=== PATIENT | male | born 1955 | race Caucasian/White ===

== ENCOUNTER 2017-08-24 15:04 | Outpatient (CLI) | payer MEDICARE ==
--- NOTE | 2017-08-24 15:32 | RAD ---
THREE VIEWS LUMBAR SPINE 08/24/17 INDICATION: Back pain. History of spina bifida. FINDINGS: there is grade II anterolisthesis of L5 on S1 that appears stable on both the flexion and lateral ext ension. Radiographs. There is multilevel disc degenerative disease of the lumbar spine. There is mult ilevel facet osteoarthritic change. Again seen are bilateral pars defects at L5. There are vascular c alcifications involving the abdominal aorta. IMPRESSION: 1. Grade II anterolisthesis of L5 on S1 likely related to pars defects. 2. No abnormal translational motion demonstrated. POS: [facility]
== END 2017-08-24 15:05 | disposition home or self-care (01) ==
LOC: TBSIIMAG 15:04
PROVIDERS: ATTEND Neurological Surgery
DX: M43.17 Spondylolisthesis, lumbosacral region (principal)
CPT/HCPCS: 72100

== ENCOUNTER 2017-10-02 12:34 | Outpatient (CLI) | payer MEDICARE ==
[2017-10-02 14:46] LABS: Mean Corpuscular HGB CONC 36.8 g/dL (32.0-36.0); Mean Corpuscular Hemoglobin 33.2 pg (27.0-31.0); Mean Corpuscular Volume 90.1 fL (78.0-98.0); Platelet Count 207 thou/uL (130-400); RBC Distribution Width 12.8 % (11.5-14.5); Red Blood Cell (RBC) Count 4.51 mill/uL (4.70-6.10); White Blood Cell (WBC) Count 6.9 thou/uL (4.8-10.8)
[2017-10-02 14:58] LABS: INR-International Normal Ratio 1.1; PTT 29.9 SEC (22.9-36.1); Prothrombin Time 14.2 SEC (12.0-14.7)
[2017-10-02 15:06] LABS: ALT (SGPT) 17 U/L (8-55); AST (SGOT) 18 U/L (5-34); Albumin 4.2 g/dL (3.5-5.0); Alkaline Phosphatase 91 U/L (40-150); Anion Gap 15 mmol/L (10-20); BUN (Urea Nitrogen) 32 mg/dL (8.4-25.7); Bilirubin, Direct 0.5 mg/dL (0.1-0.3); Bilirubin, Total 1.2 mg/dL (0.2-1.2); Calc. Creatinine Clearance 0 mL/min (70-130); Calcium 9.7 mg/dL (7.8-10.44); Carbon Dioxide 23 mmol/L (22-29); Chloride 105 mmol/L (98-107); Estimated GFR-MDRD 47; Glucose 201 mg/dL (70-105); Protein, Total 7.6 g/dL (6.0-8.3); Sodium 138 mmol/L (136-145)
--- NOTE | 2017-10-03 12:49 | EKG ---
Test Reason : Blood Pressure : / mmHG Vent. Rate : 087 BPM Atrial Rate : 087 BPM P-R Int : 176 ms QRS Dur : 080 ms QT Int : 386 ms P-R-T Axes : 016 -53 060 degrees QTc Int : 464 ms Normal sinus rhythm Left anterior fascicular block Cannot rule out Anterior infarct (cited on or before 23-APR-2015) Abnormal ECG Confirmed by YOSSI PHILLIP ([id number]) on 10/03/2017 12:49:15 PM Referred By: ADOLFO Confirmed By:YOSSI PHILLIP
== END 2017-10-02 12:35 | disposition home or self-care (01) ==
LOC: LABBT 12:34
PROVIDERS: ATTEND Neurological Surgery
DX: Z01.818 Encounter for other preprocedural examination (principal); M48.061 Spinal stenosis, lumbar region without neurogenic claudication
CPT/HCPCS: 80048; 80076; 85027; 85610; 85730; 93005; 93010

== ENCOUNTER 2017-10-09 05:35 | Inpatient (IN) | payer MEDICARE ==
[2017-10-02 12:54] VITALS: BMI 33.5
[2017-10-09] MEDS ORDERED: CEFAZOLIN/Water 2 GM/20 ML SYRINGE ONE (06:06)
[2017-10-09] MEDS ORDERED: Fentanyl 250 MCG/5 ML VIAL ONE (06:42)
[2017-10-09] MEDS ORDERED: Sodium Chloride 0.9% 10 ML ONE (06:46)
--- NOTE | 2017-10-09 08:46 | OP ---
DATE OF PROCEDURE: 10/09/2017 SURGEON: Faustino Loyd M.D. I&C TECH: Andrew Herr PA-C PROCEDURE: L5-S1 bilateral laminectomy, facetectomy and foraminotomies, posterolateral arthrodesis, pedicle screw instrumentation L5-S1, demineralized bone matrix, local morselized autograft. PROCEDURE IN DETAIL: The patient was brought to the operating room, intubated. He was rolled in the prone position on gel-filled chest rolls. Incision made exposing L5 and S1 bilaterally and our leve l was confirmed by x-ray. We performed bilateral laminectomy, facetectomy and foraminotomies of both L5s. The right L5 was much more compressed than the left L5. Both L5s were ultimately decompressed . We placed pedicle screws at L5 and S1 using lateral fluoroscopic guidance and the position was con firmed by x-ray. A loly was secured between the screws and both reduction and distraction was applied bilaterally. Rods were secured by nuts which were final tightened. The wound was then extensively irrigated, immaculate hemostasis was secured. A combination of demineralized bone matrix, local mors elized autograft was laid over the posterolateral surfaces of arthrodesis. Vancomycin powder was shoshana lied and the wound was closed in anatomic layers.
[2017-10-09] MEDS ORDERED: HYDROmorphone 0.5 MG/0.5 ML SYRINGE ONE (08:56)
[2017-10-09] MEDS ORDERED: Fentanyl 100 MCG/2 ML VIAL ONE (08:56)
[2017-10-09] MEDS ORDERED: Morphine 4 MG/ML VIAL ONE (11:18)
[2017-10-09] MEDS ORDERED: HYDROcodone/Acetaminophen 10/325 mg Tablet ONE ×2 (11:45→17:42)
[2017-10-09] MEDS ORDERED: Tamsulosin HCl 0.4 MG CAP ONE (13:06)
[2017-10-09] MEDS ORDERED: Ondansetron HCl/PF 4 MG/2 ML Vial ONE (15:05)
[2017-10-09] MEDS ORDERED: ePHEDrine/0.9% NaCl/PF SYRINGE 50 mg/10 ml ONE (15:05)
[2017-10-09] MEDS ORDERED: PHENYLEPHRINE-NS 100 MCG/ML 10 ML SYRINGE ONE (15:05)
[2017-10-09] MEDS ORDERED: Dexamethasone 20 MG/5 ML VIAL ONE (15:05)
[2017-10-09] MEDS ORDERED: Labetalol 100 MG/20 ML MDV ONE (15:05)
[2017-10-09] MEDS ORDERED: PROPOFOL 200 MG/20 ML VIAL ONE (15:05)
[2017-10-09] MEDS ORDERED: Lidocaine 1% PF 5 ML VIAL ONE (15:05)
[2017-10-09] MEDS ORDERED: Glycopyrrolate 0.2 MG/ML 5 ML SYRINGE ONE (15:05)
[2017-10-09] MEDS ORDERED: Morphine 4 MG/ML Carpuject SLOW IVP PRN (18:00)
[2017-10-09] MEDS ORDERED: Promethazine HCl 25 MG/ML VIAL IM PRN (18:00)
[2017-10-09] MEDS ORDERED: diphenhydrAMINE 25 MG CAP PO PRN (18:00)
[2017-10-09] MEDS ORDERED: Promethazine 25 MG TAB PO PRN (18:00)
[2017-10-09] MEDS ORDERED: traMADol HCl 50 MG TAB PO PRN ×2 (18:00)
[2017-10-09] MEDS ORDERED: tiZANidine HCl 4 MG TAB PO PRN (18:00)
[2017-10-09] MEDS ORDERED: Milk Of Magnesia 30 ML UDCUP PO PRN (18:00)
[2017-10-09] MEDS ORDERED: diphenhydrAMINE 50 MG/ML VIAL IVP PRN (18:00)
[2017-10-09] MEDS ORDERED: Mag-Al 1200 mg/1200 mg/30 ML UDCUP PO PRN (18:00)
[2017-10-09] MEDS ORDERED: Promethazine HCl 12.5 MG SUPP PR PRN (18:00)
[2017-10-09] MEDS ORDERED: Ondansetron HCl/PF 4 MG/2 ML Vial IVP PRN (18:05)
[2017-10-09] MEDS: Amitriptyline HCl 25 MG TAB PO SCH (22:05)
[2017-10-09] MEDS: tiZANidine HCl 4 MG TAB PO SCH (22:05)
[2017-10-09] MEDS: Gabapentin 300 MG CAP PO SCH (22:06)
[2017-10-09] MEDS: HYDROcodone/Acetaminophen 10/325 mg Tablet PO PRN (22:06)
[2017-10-09] MEDS: Insulin Glargine 10 UNITS in Pre-Filled Syringe 1 EACH SC SCH (22:08)
[2017-10-10] MEDS: Tamsulosin HCl 0.4 MG CAP PO SCH (06:13)
[2017-10-10] MEDS: Gabapentin 300 MG CAP PO SCH ×3 (08:13→21:13)
[2017-10-10] MEDS: Lisinopril/Hydrochlorothiazide 20 mg/12.5 mg Tablet PO SCH (08:14)
[2017-10-10] MEDS: metFORMIN 500 MG TAB PO SCH ×2 (08:14→19:39)
[2017-10-10] MEDS: HYDROcodone/Acetaminophen 10/325 mg Tablet PO PRN ×2 (08:15→12:54)
[2017-10-10] MEDS ORDERED: Atorvastatin Calcium 40 MG TAB PO SCH (09:00)
[2017-10-10] MEDS: Sodium Chloride 0.9% 1,000 ML IV SCH ×3 (12:53→21:15)
[2017-10-10] MEDS ORDERED: Insulin Regular 300 UNITS/3 ML VIAL SC PRN (17:54)
[2017-10-10] MEDS ORDERED: Dextrose 50% Abboject 50 ML SYRINGE SLOW IVP PRN (17:54)
[2017-10-10] MEDS ORDERED: Dextrose 5% in Water 1,000 ML IV PRN (17:54)
[2017-10-10] MEDS ORDERED: Sodium Chloride 0.9% 1,000 ML IV SCH (18:00)
--- NOTE | 2017-10-10 18:44 | RAD ---
PORTABLE AP CHEST X-RAY: 10/10/17 HISTORY: Shortness of breath and wheezing. COMPARISON: 10/30/12. FINDINGS: There is linear patchy parenchymal changes at the left lung base in the region of the lingula which m ay be related to either atelectasis or developing pneumonia. Right lung is clear. The cardiac silhoue tte is magnified by projection. The pulmonary vasculature is within normal limits. There is bilateral glenohumeral osteoarthropathy present. IMPRESSION: Linear and patchy density at the left lung base which may be related to atelectasis, but developing p neumonia is a possibility. Followup to resolution is recommended. POS: [facility]
[2017-10-10] MEDS: Amitriptyline HCl 25 MG TAB PO SCH (21:13)
[2017-10-10] MEDS: tiZANidine HCl 4 MG TAB PO SCH (21:13)
[2017-10-10] MEDS: Acetaminophen 500 MG TAB PO PRN (21:41)
[2017-10-10] MEDS: Insulin Glargine 10 UNITS in Pre-Filled Syringe 1 EACH SC SCH (21:42)
[2017-10-10 22:00] LABS: #Lymphocytes 0.7 thou/uL (1.20-3.40); #Monocytes 0.6 thou/uL (0.11-0.59); #Neutrophils 6.1 thou/uL (1.40-6.50); %Basophils 0.1 % (0.0-1.0); %Eosinophils 0.5 % (0.0-10.0); %Monocytes 7.6 % (0.0-10.0); %Neutrophils 81.9 % (42.0-75.0); Hemoglobin 10.7 g/dL (14.0-18.0); Mean Corpuscular HGB CONC 36.7 g/dL (32.0-36.0); Mean Corpuscular Hemoglobin 33.6 pg (27.0-31.0); Mean Corpuscular Volume 91.5 fL (78.0-98.0); Mean Platelet Volume 7.4 fL (7.4-10.4); PLT Morphology Comment Appears Decreased; Platelet Count 117 thou/uL (130-400); RBC Distribution Width 13.4 % (11.5-14.5); Red Blood Cell (RBC) Count 3.19 mill/uL (4.70-6.10); White Blood Cell (WBC) Count 7.4 thou/uL (4.8-10.8)
[2017-10-10 22:08] LABS: ALT (SGPT) 15 U/L (8-55); AST (SGOT) 48 U/L (5-34); Albumin 3.3 g/dL (3.5-5.0); Alkaline Phosphatase 59 U/L (40-150); Anion Gap 11 mmol/L (10-20); BUN (Urea Nitrogen) 31 mg/dL (8.4-25.7); Bilirubin, Total 2.4 mg/dL (0.2-1.2); Calc. Creatinine Clearance 64 mL/min (70-130); Calcium 7.9 mg/dL (7.8-10.44); Carbon Dioxide 22 mmol/L (22-29); Chloride 98 mmol/L (98-107); Estimated GFR-MDRD 43; Globulin 2.8 g/dL (2.4-3.5); Glucose 194 mg/dL (70-105); Magnesium 1.1 mg/dL (1.6-2.6); Potassium 5.3 mmol/L (3.5-5.1); Protein, Total 6.1 g/dL (6.0-8.3); Sodium 126 mmol/L (136-145)
[2017-10-10 22:15] LABS: Phosphorus 1.4 mg/dL (2.3-4.7)
[2017-10-11] MEDS: Acetaminophen 500 MG TAB PO PRN ×2 (05:59→22:12)
[2017-10-11] MEDS: Tamsulosin HCl 0.4 MG CAP PO SCH (05:59)
[2017-10-11] MEDS ORDERED: Magnesium Sulfate 2 GM in Sodium Chloride 0.9% 100 ML IVPB SCH (06:45)
[2017-10-11] MEDS ORDERED: Magnesium 2 GM/NS 0.9% 100 ML 2 GM in Premix Bag 1 BAG IVPB SCH (07:00)
[2017-10-11] MEDS ORDERED: Vancomycin HCl 1 GM in Premix Bag 1 BAG IVPB SCH (07:00)
[2017-10-11] MEDS: Insulin Regular 300 UNITS/3 ML VIAL SC PRN ×3 (07:15→17:45)
[2017-10-11] MEDS: Gabapentin 300 MG CAP PO SCH ×3 (07:46→22:13)
[2017-10-11 07:54] LABS: ALT (SGPT) 14 U/L (8-55); AST (SGOT) 42 U/L (5-34); Alkaline Phosphatase 53 U/L (40-150); Anion Gap 9 mmol/L (10-20); BUN (Urea Nitrogen) 30 mg/dL (8.4-25.7); Bilirubin, Total 1.9 mg/dL (0.2-1.2); Calc. Creatinine Clearance 67 mL/min (70-130); Calcium 7.6 mg/dL (7.8-10.44); Carbon Dioxide 22 mmol/L (22-29); Chloride 102 mmol/L (98-107); Estimated GFR-MDRD 46; Globulin 2.5 g/dL (2.4-3.5); Glucose 160 mg/dL (70-105); Lipase Less than 4 U/L (8-78); Potassium 4.6 mmol/L (3.5-5.1); Protein, Total 5.5 g/dL (6.0-8.3); Sodium 128 mmol/L (136-145)
[2017-10-11 08:11] LABS: Thyroid Stimulating Hormone 0.3455 uIU/mL (0.35-4.94)
[2017-10-11] MEDS: Piperacillin/Tazobactam 3.375 GM in Sodium Chloride 0.9% 100 ML IVPB SCH ×3 (08:35→23:07)
[2017-10-11 09:49] LABS: Osmolality, Urine 240 mOsm/kg (300-900)
[2017-10-11] MEDS: Vancomycin HCl 1.5 GM in Sodium Chloride 0.9% 250 ML 300 ML IVPB SCH (09:51)
[2017-10-11 10:00] LABS: Sodium, Urine 26 mmol/L (Not Available)
[2017-10-11] MEDS: Sodium Chloride 0.9% 1,000 ML IV SCH ×3 (11:57→17:46)
--- NOTE | 2017-10-11 13:37 | PDOC.PN ---
- Subjective Encounter Start Date: 10/11/17 Encounter Start Time: 11:30 Patient seen and examined for med mngt . No new complaints except for discomfort over the surgical site. Sitter at bedside to prevent falls. No overnight events - Objective MAR Reviewed: Yes Vital Signs & Weight: Vital Signs (12 hours) Temp Pulse Resp BP Pulse Ox 10/11/17 13:22 98.1 F 100 18 164/87 H 96 10/11/17 13:05 98.6 F 98 18 95 10/11/17 09:00 98.6 F 98 18 118/61 93 L 10/11/17 08:09 100.1 F H 101 H 18 10/11/17 05:57 100.1 F H 101 H 18 146/73 H 94 L Weight Weight 208 lb I&O: 10/10/17 10/11/17 10/12/17 06:59 06:59 06:59 Intake Total 2050 2817 Output Total 1555 1200 200 Balance 495 1617 -200 Result Diagrams: 10/10/17 21:41 10/11/17 07:24 Additional Labs: Accuchecks 10/11/17 10/11/17 10/10/17 11:48 06:34 20:49 POC Glucose 163 H 164 H 204 H 10/10/17 16:13 POC Glucose 183 H Laboratory Tests 10/10/17 10/11/17 21:41 07:21 Sodium 126 L Potassium 5.3 H Phosphorus 1.4 L Magnesium 1.1 L Total Bilirubin 2.4 H TSH 3rd Generation 0.3455 L Radiology Reviewed by me: Yes (CXR ? Aspiration pneumonia) EKG Reviewed by me: Yes (SR) Phys Exam - Physical Examination Constitutional: NAD HEENT: PERRLA Neck: no JVD Respiratory: no wheezing, no rhonchi Scat rales at bases, Symmetrical, No accessory muscle use Cardiovascular: RRR, no rub No heaves/pulsations Gastrointestinal: soft, non-tender, positive bowel sounds Musculoskeletal: no edema Neurological: moves all 4 limbs Psychiatric: normal affect, A&O x 3 Skin: no rash Dx/Plan - Plan incentive spirometry, DVT proph w/SCDs IMPRESSION: 1. RADHA on CKD 2 2. Electrolyte abn (Acute on chronicHyponatremia/Hypomagnesemia/Hypophosphatemia /Hyperkalemia) 3. Low grade fever with Abn CXR ? Pneumonia LLL ? Pneumococcal vs Aspiration 4. HTN 5. DM2 6. Abn LFTS - multifactorial 7. Chronic Hep C / Chronic low back pain / Obesity BMI 33 / Thrombocytopenia PLAN: IV NS @125 Replace Magnesium and Phosphorus Blood culture Empiric Atbx - Vanc/Zosyn Fall precautions Check serum and urine osm, urine sodium, TSH. AM labs Repeat BMP later today Hold Lisinopril/HCTZ Hold Metformin Start sliding scale Cont Lantus at current dose Avoid hepatotoxic meds Review of Systems - Review of Systems Respiratory: negative: Cough, Dry, Shortness of Breath, Hemoptysis, SOB with Excertion, Pleuritic Pain, Sputum, Wheezing Cardiovascular: negative: chest pain, palpitations, orthopnea, paroxysmal nocturnal dyspnea, edema, light headedness, other Gastrointestinal: negative: Nausea, Vomiting, Abdominal Pain, Diarrhea, Constipation, Melena, Hematochezia, Other - Medications/Allergies Allergies/Adverse Reactions: Allergies Allergy/AdvReac Type Severity Reaction Status Date / Time ibuprofen Allergy Intermediate ELYSSA Verified 10/02/17 13:02 DOSE, SHORTNESS OF BREATH, DIZZINESS Medications: Current Medications Acetaminophen (Tylenol) 1,000 mg PO QIDPRN PRN PRN Reason: Headache/Fever or Pain Last Admin: 10/11/17 05:59 Dose: 1,000 mg Hydrocodone Bitart/Acetaminophen ([place] 10/325) 1 tab PO Q4H PRN PRN Reason: PAIN (1-3) Last Admin: 10/10/17 12:54 Dose: 1 tab Hydrocodone Bitart/Acetaminophen ([place] 10/325) 2 tab PO Q4H PRN PRN Reason: PAIN (4-6) Last Admin: 10/09/17 22:06 Dose: 2 tab Al Hydroxide/Mg Hydroxide (Maalox) 30 ml PO Q4H PRN PRN Reason: Heartburn or Indigestion Last Admin: 10/09/17 22:08 Dose: 30 ml Dextrose/Water (Dextrose 50%) 25 gm SLOW IVP PRN PRN PRN Reason: Hypoglycemia Diphenhydramine HCl (Benadryl) 25 mg PO Q6H PRN PRN Reason: Itching Diphenhydramine HCl (Benadryl) 25 mg IVP Q6H PRN PRN Reason: Itching Gabapentin (Neurontin) 600 mg PO TID [facility] Last Admin: 10/11/17 07:46 Dose: 600 mg Glucagon (Glucagon) 1 mg IM PRN PRN PRN Reason: Hypoglycemia Insulin Glargine 10 units/ (Miscellaneous Medication) 0.1 mls @ 0 mls/hr SC QPM [facility] Last Admin: 10/10/17 21:42 Dose: 0.1 mls Dextrose/Water (D5w) 1,000 mls @ 0 mls/hr IV .Q0M PRN; As Directed PRN Reason: Hypoglycemia Sodium Chloride (Normal Saline 0.9%) 1,000 mls @ 125 mls/hr IV .Q8H [facility] Last Admin: 10/11/17 13:03 Dose: Not Given Piperacillin Sod/Tazobactam (Sod 3.375 gm/ Sodium Chloride) 100 mls @ 200 mls/ hr IVPB Q8H [facility] Last Admin: 10/11/17 08:35 Dose: 100 mls Vancomycin HCl 1.5 gm/ Sodium (Chloride) 300 mls @ 200 mls/hr IVPB Q24HR [facility] Last Admin: 10/11/17 09:51 Dose: 300 mls Insulin Human Regular (Humulin R) 0 units SC .MILD SLIDING SCALE PRN PRN Reason: Mild Correctional Scale Last Admin: 10/11/17 11:57 Dose: 2 units Insulin Human Regular (Humulin R) 0 units SC .BEDTIME SLIDING SC PRN PRN Reason: Bedtime Correctional Scale Last Admin: 10/10/17 21:42 Dose: 4 unit Magnesium Hydroxide (Milk Of Magnesium) 30 ml PO Q12H PRN PRN Reason: Constipation Miscellaneous Medication (Pharmacy To Dose) 1 each IVPB ASDIR [facility] Morphine Sulfate (Morphine) 2 mg SLOW IVP Q1H PRN PRN Reason: Moderate Breakthrough Pain Morphine Sulfate (Morphine) 4 mg SLOW IVP Q1H PRN PRN Reason: Severe Breakthrough Pain Ondansetron HCl (Zofran) 4 mg IVP Q8H PRN PRN Reason: Nausea/Vomiting Pantoprazole Sodium (Protonix) 40 mg PO DAILY [facility] Last Admin: 10/11/17 07:46 Dose: 40 mg Promethazine HCl (Phenergan) 12.5 mg IM Q4H PRN PRN Reason: Nausea/Vomiting Last Admin: 10/09/17 20:29 Dose: 12.5 mg Promethazine HCl (Phenergan) 12.5 mg PO Q4H PRN PRN Reason: Nausea/Vomiting Promethazine HCl (Phenergan Suppository) 12.5 mg [place] Q4H PRN PRN Reason: Nausea/Vomiting Sodium Chloride (Flush - Normal Saline) 10 ml IVF Q12HR [facility] Last Admin: 10/11/17 07:45 Dose: 10 ml Sodium Chloride (Flush - Normal Saline) 10 ml IVF PRN PRN PRN Reason: Saline Flush Tamsulosin HCl (Flomax) 0.4 mg PO 0600 [facility] Last Admin: 10/11/17 05:59 Dose: 0.4 mg Tizanidine HCl (Zanaflex) 4 mg PO Q6H PRN PRN Reason: MUSCLE SPASM Tizanidine HCl (Zanaflex) 4 mg PO HS [facility] Last Admin: 10/10/17 21:13 Dose: 4 mg Tramadol HCl (Ultram) 50 mg PO Q6H PRN PRN Reason: PAIN (1-3) Last Admin: 10/10/17 18:05 Dose: 50 mg Tramadol HCl (Ultram) 100 mg PO Q6H PRN PRN Reason: PAIN (4-6)
[2017-10-11] MEDS ORDERED: Amlodipine 5 MG TAB PO SCH (17:00)
[2017-10-11 18:43] LABS: Sodium 133 mmol/L (136-145)
--- NOTE | 2017-10-11 19:44 | MRI ---
NONCONTRAST MRI CERVICAL SPINE 10/11/17 HISTORY: Unsteady gait and balance issues. Patient is post laminotomy defect of lumbar spine two days ago. Sev ere pain from surgery. COMPARISON: None available. FINDINGS: there is mild volume loss seen involving the visualized portions of the occipital lobes and cerebellu m. Cervicomedullary junction has a normal MRI appearance. There are mild end plate degenerative changes seen involving the mid cervical spine. There is otherwi se normal signal intensity demonstrated in the bone marrow. C2-3 level: There is no significant disc bulge or disc herniation. There are mild facet degenerative changes present bilaterally. There is mild right sided neural foraminal narrowing. The left neural fo ramen is patent. Minimal right sided uncinate process hypertrophy. C3-4 level: There is a broad based disc osteophyte complex with facet degenerative changes. Findings result in mild to moderate narrowing of the central spinal canal. There appears to be severe left kenn ed neural foraminal narrowing with moderate right sided neural foraminal narrowing. Uncinate process hypertrophy is present at this level. C4-5 level: There is a broad based disc osteophyte complex. Findings result in generalized mild to mo derate narrowing of the central spinal canal. There does appear to be slight flattening of the anteri or aspect of the spinal cord, but normal signal intensity is present in the spinal cord. Uncinate pro cess hypertrophy is seen bilaterally at this level. There is severe left and mild to moderate right s ided neural foraminal narrowing. C5-6 level: There is loss of intervertebral disc height. There is a broad based disc osteophyte compl ex and facet degenerative changes. Findings result in moderate narrowing of the central spinal canal. There is moderate to severe and severe right sided neural foraminal narrowing. Uncinate process hype rtrophy is present in addition to the facet hypertrophic changes. C6-7 level: There is loss of the intervertebral disc height. There is a mild broad based disc osteoph yte complex which results in slight narrowing of the ventral subarachnoid space. Uncinate process hyp ertrophy is seen bilaterally. There is severe bilateral neural foraminal narrowing greater on the lef t. C7-T1 level: There is no disc bulge or disc herniation. Central spinal canal and neural foramina are patent. IMPRESSION: Multilevel degenerative changes in the cervical spine greatest at the C4-5, C5-6 and C6-7 levels with severe degrees of neural foraminal narrowing at these levels. POS: [facility]
[2017-10-11] MEDS: tiZANidine HCl 4 MG TAB PO SCH (22:12)
[2017-10-11] MEDS: Insulin Glargine 10 UNITS in Pre-Filled Syringe 1 EACH SC SCH (22:25)
[2017-10-12] MEDS: HYDROcodone/Acetaminophen 10/325 mg Tablet PO PRN ×4 (05:29→18:26)
[2017-10-12] MEDS: Tamsulosin HCl 0.4 MG CAP PO SCH (05:30)
[2017-10-12] MEDS: Insulin Regular 300 UNITS/3 ML VIAL SC PRN ×2 (05:34→11:29)
[2017-10-12] MEDS: Piperacillin/Tazobactam 3.375 GM in Sodium Chloride 0.9% 100 ML IVPB SCH ×2 (05:58→14:25)
[2017-10-12 06:54] LABS: ALT (SGPT) 16 U/L (8-55); AST (SGOT) 40 U/L (5-34); Alkaline Phosphatase 65 U/L (40-150); Anion Gap 12 mmol/L (10-20); BUN (Urea Nitrogen) 25 mg/dL (8.4-25.7); Bilirubin, Total 1.6 mg/dL (0.2-1.2); Calc. Creatinine Clearance 74 mL/min (70-130); Carbon Dioxide 21 mmol/L (22-29); Chloride 104 mmol/L (98-107); Estimated GFR-MDRD 51; Glucose 170 mg/dL (70-105); Magnesium 1.6 mg/dL (1.6-2.6); Phosphorus 2.2 mg/dL (2.3-4.7); Potassium 4.2 mmol/L (3.5-5.1); Sodium 133 mmol/L (136-145)
[2017-10-12 06:56] LABS: #Eosinphils 0.1 thou/uL (0.0-0.7); #Lymphocytes 1.2 thou/uL (1.20-3.40); #Monocytes 0.5 thou/uL (0.11-0.59); #Neutrophils 3.6 thou/uL (1.40-6.50); %Basophils 0.5 % (0.0-1.0); %Eosinophils 1.9 % (0.0-10.0); %Lymphocytes 22.8 % (21.0-51.0); %Monocytes 8.8 % (0.0-10.0); Hemoglobin 10.4 g/dL (14.0-18.0); Mean Corpuscular HGB CONC 35.8 g/dL (32.0-36.0); Mean Corpuscular Hemoglobin 33.3 pg (27.0-31.0); Mean Platelet Volume 7.1 fL (7.4-10.4); Platelet Count 121 thou/uL (130-400); RBC Distribution Width 13.6 % (11.5-14.5); Red Blood Cell (RBC) Count 3.12 mill/uL (4.70-6.10); White Blood Cell (WBC) Count 5.4 thou/uL (4.8-10.8)
[2017-10-12] MEDS ORDERED: Magnesium 2 GM/NS 0.9% 100 ML 2 GM in Premix Bag 1 BAG IVPB SCH (07:15)
[2017-10-12] MEDS ORDERED: Magnesium Sulfate 2 GM in Sodium Chloride 0.9% 100 ML IVPB SCH (07:15)
[2017-10-12] MEDS: Gabapentin 300 MG CAP PO SCH ×3 (08:26→20:45)
[2017-10-12] MEDS: Amlodipine 5 MG TAB PO SCH (08:27)
[2017-10-12] MEDS: Multivit, Therapeutic 1 TAB PO SCH (08:27)
[2017-10-12] MEDS: K-Phos Neutral 250 MG TAB PO SCH ×3 (09:09→17:29)
[2017-10-12] MEDS: Vancomycin HCl 1.5 GM in Sodium Chloride 0.9% 250 ML 300 ML IVPB SCH (09:09)
[2017-10-12] MEDS: Sodium Chloride 0.9% 1,000 ML IV SCH (12:41)
--- NOTE | 2017-10-12 15:05 | PDOC.PN ---
- Subjective Encounter Start Date: 10/12/17 Encounter Start Time: 10:30 Patient seen and examined for med mngt. No new complaints. No overnight events - Objective MAR Reviewed: Yes Vital Signs & Weight: Vital Signs (12 hours) Temp Pulse Resp BP BP Pulse Ox 10/12/17 11:13 98.4 F 91 14 128/71 96 10/12/17 08:27 90 143/82 H 10/12/17 08:20 98.6 F 90 18 93 L 10/12/17 07:28 98.6 F 89 18 143/82 H 93 L 10/12/17 04:00 97.8 F 88 16 141/71 H 93 L Weight Weight 208 lb I&O: 10/11/17 10/12/17 10/13/17 06:59 06:59 06:59 Intake Total 2817 2605 Output Total 1200 2700 Balance 1617 -95 Result Diagrams: 10/12/17 04:55 10/12/17 04:55 Additional Labs: Accuchecks 10/12/17 10/12/17 10/11/17 11:16 04:47 20:18 POC Glucose 222 H 169 H 186 H 10/11/17 15:58 POC Glucose 276 H Laboratory Tests 10/10/17 10/11/17 10/11/17 21:41 07:24 09:00 Sodium 126 L 128 L Potassium 5.3 H Phosphorus 1.4 L Magnesium 1.1 L Total Bilirubin 1.9 H AST 42 H Urine Osmolality 240 L Urine Sodium 26 10/11/17 10/12/17 18:20 04:55 Sodium 133 L Potassium Phosphorus 2.2 L Magnesium 1.6 Total Bilirubin 1.6 H AST 40 H Urine Osmolality Urine Sodium Phys Exam - Physical Examination Constitutional: NAD Neck: no JVD Respiratory: no wheezing, no rhonchi Scat bibasilar rales Cardiovascular: RRR, no rub Gastrointestinal: soft, non-tender, positive bowel sounds Musculoskeletal: no edema Dx/Plan - Plan DVT proph w/SCDs IMPRESSION: 1. RADHA on CKD 2 - improving 2. Electrolyte abn (Hyponatremia/Hypomagnesemia/Hypophosphatemia)improving 3. ?Aspiration pneumonitis 4. HTN 5. DM2 - on sliding scale 6 Abn LFTS - multifactorial - improving 7. Chronic Hep C / Chronic low back pain / Obesity BMI 33 PLAN: Change IV NS @50 Replace Magnesium and Phosphorus Await Blood culture Change IV Atbx to PO Augmentin Labs reviewed AM lab Lisinopril/HCTZ and Metformin on hold Amlodipine started yesterday due to elevated BP Cont Lantus at current dose Review of Systems - Review of Systems Respiratory: Cough, Dry. negative: Shortness of Breath, Hemoptysis, SOB with Excertion, Pleuritic Pain, Sputum, Wheezing Cardiovascular: negative: chest pain, palpitations, orthopnea, paroxysmal nocturnal dyspnea, edema, light headedness, other - Medications/Allergies Allergies/Adverse Reactions: Allergies Allergy/AdvReac Type Severity Reaction Status Date / Time ibuprofen Allergy Intermediate ELYSSA Verified 10/02/17 13:02 DOSE, SHORTNESS OF BREATH, DIZZINESS Medications: Current Medications Acetaminophen (Tylenol) 1,000 mg PO QIDPRN PRN PRN Reason: Headache/Fever or Pain Last Admin: 10/11/17 22:12 Dose: 1,000 mg Hydrocodone Bitart/Acetaminophen ([place] 10/325) 1 tab PO Q4H PRN PRN Reason: PAIN (1-3) Last Admin: 10/10/17 12:54 Dose: 1 tab Hydrocodone Bitart/Acetaminophen ([place] 10/325) 2 tab PO Q4H PRN PRN Reason: PAIN (4-6) Last Admin: 10/12/17 14:25 Dose: 2 tab Al Hydroxide/Mg Hydroxide (Maalox) 30 ml PO Q4H PRN PRN Reason: Heartburn or Indigestion Last Admin: 10/09/17 22:08 Dose: 30 ml Amlodipine Besylate (Norvasc) 5 mg PO DAILY [facility] Last Admin: 10/12/17 08:27 Dose: 5 mg Amoxicillin/Clavulanate Potassium (Augmentin) 875 mg PO Q12HR [facility] Dextrose/Water (Dextrose 50%) 25 gm SLOW IVP PRN PRN PRN Reason: Hypoglycemia Diphenhydramine HCl (Benadryl) 25 mg PO Q6H PRN PRN Reason: Itching Diphenhydramine HCl (Benadryl) 25 mg IVP Q6H PRN PRN Reason: Itching Gabapentin (Neurontin) 600 mg PO TID [facility] Last Admin: 10/12/17 14:25 Dose: 600 mg Glucagon (Glucagon) 1 mg IM PRN PRN PRN Reason: Hypoglycemia Hydralazine HCl (Apresoline) 10 mg SLOW IVP Q4H PRN PRN Reason: SBP Greater Than 180 Insulin Glargine 10 units/ (Miscellaneous Medication) 0.1 mls @ 0 mls/hr SC QPM [facility] Last Admin: 10/11/17 22:25 Dose: 0.1 mls Dextrose/Water (D5w) 1,000 mls @ 0 mls/hr IV .Q0M PRN; As Directed PRN Reason: Hypoglycemia Sodium Chloride (Normal Saline 0.9%) 1,000 mls @ 50 mls/hr IV .Q20H [facility] Last Admin: 10/12/17 12:41 Dose: 1,000 mls Insulin Human Regular (Humulin R) 0 units SC .MILD SLIDING SCALE PRN PRN Reason: Mild Correctional Scale Last Admin: 10/12/17 11:29 Dose: 3 units Insulin Human Regular (Humulin R) 0 units SC .BEDTIME SLIDING SC PRN PRN Reason: Bedtime Correctional Scale Last Admin: 10/10/17 21:42 Dose: 4 unit Magnesium Hydroxide (Milk Of Magnesium) 30 ml PO Q12H PRN PRN Reason: Constipation Miscellaneous Medication (Pharmacy To Dose) 1 each IVPB ASDIR [facility] Morphine Sulfate (Morphine) 2 mg SLOW IVP Q1H PRN PRN Reason: Moderate Breakthrough Pain Morphine Sulfate (Morphine) 4 mg SLOW IVP Q1H PRN PRN Reason: Severe Breakthrough Pain Multivitamins (Theragran) 1 tab PO DAILY [facility] Last Admin: 10/12/17 08:27 Dose: 1 tab Ondansetron HCl (Zofran) 4 mg IVP Q8H PRN PRN Reason: Nausea/Vomiting Pantoprazole Sodium (Protonix) 40 mg PO DAILY [facility] Last Admin: 10/12/17 08:27 Dose: 40 mg Phosphorus (Kphos Neutral) 250 mg PO TID[facility] Last Admin: 10/12/17 11:29 Dose: 250 mg Promethazine HCl (Phenergan) 12.5 mg IM Q4H PRN PRN Reason: Nausea/Vomiting Last Admin: 10/09/17 20:29 Dose: 12.5 mg Promethazine HCl (Phenergan) 12.5 mg PO Q4H PRN PRN Reason: Nausea/Vomiting Promethazine HCl (Phenergan Suppository) 12.5 mg CO Q4H PRN PRN Reason: Nausea/Vomiting Sodium Chloride (Flush - Normal Saline) 10 ml IVF Q12HR [facility] Last Admin: 10/12/17 08:28 Dose: Not Given Sodium Chloride (Flush - Normal Saline) 10 ml IVF PRN PRN PRN Reason: Saline Flush Tamsulosin HCl (Flomax) 0.4 mg PO 0600 [facility] Last Admin: 10/12/17 05:30 Dose: 0.4 mg Tizanidine HCl (Zanaflex) 4 mg PO Q6H PRN PRN Reason: MUSCLE SPASM Tizanidine HCl (Zanaflex) 4 mg PO HS [facility] Last Admin: 10/11/17 22:12 Dose: 4 mg Tramadol HCl (Ultram) 50 mg PO Q6H PRN PRN Reason: PAIN (1-3) Last Admin: 10/10/17 18:05 Dose: 50 mg Tramadol HCl (Ultram) 100 mg PO Q6H PRN PRN Reason: PAIN (4-6)
[2017-10-12] MEDS: Amoxicillin/Potassium Clav 875 MG TAB PO SCH (20:45)
[2017-10-12] MEDS: guaiFENesin ER 600 MG TAB PO SCH (20:46)
[2017-10-12] MEDS: tiZANidine HCl 4 MG TAB PO SCH (20:46)
[2017-10-12] MEDS: Senokot S 8.6-50 MG TAB PO SCH (20:48)
[2017-10-12] MEDS: Insulin Glargine 10 UNITS in Pre-Filled Syringe 1 EACH SC SCH (21:46)
[2017-10-13] MEDS: hydrALAZINE 20 MG/ML VIAL SLOW IVP PRN (00:06)
[2017-10-13] MEDS: HYDROcodone/Acetaminophen 10/325 mg Tablet PO PRN ×4 (04:12→21:08)
[2017-10-13] MEDS: Tamsulosin HCl 0.4 MG CAP PO SCH (04:14)
[2017-10-13 05:51] LABS: #Eosinphils 0.1 thou/uL (0.0-0.7); #Lymphocytes 0.9 thou/uL (1.20-3.40); #Monocytes 0.6 thou/uL (0.11-0.59); #Neutrophils 3.8 thou/uL (1.40-6.50); %Basophils 0.2 % (0.0-1.0); %Eosinophils 1.8 % (0.0-10.0); %Lymphocytes 16.7 % (21.0-51.0); %Monocytes 11.2 % (0.0-10.0); %Neutrophils 70.2 % (42.0-75.0); Hemoglobin 10.3 g/dL (14.0-18.0); Mean Corpuscular HGB CONC 34.4 g/dL (32.0-36.0); Mean Corpuscular Hemoglobin 32.7 pg (27.0-31.0); Mean Corpuscular Volume 94.9 fL (78.0-98.0); Mean Platelet Volume 7.1 fL (7.4-10.4); Platelet Count 147 thou/uL (130-400); RBC Distribution Width 13.8 % (11.5-14.5); Red Blood Cell (RBC) Count 3.16 mill/uL (4.70-6.10); White Blood Cell (WBC) Count 5.4 thou/uL (4.8-10.8)
[2017-10-13 06:00] LABS: ALT (SGPT) 17 U/L (8-55); AST (SGOT) 33 U/L (5-34); Albumin 3.3 g/dL (3.5-5.0); Alkaline Phosphatase 76 U/L (40-150); Anion Gap 11 mmol/L (10-20); BUN (Urea Nitrogen) 19 mg/dL (8.4-25.7); Bilirubin, Total 2.4 mg/dL (0.2-1.2); Calc. Creatinine Clearance 85 mL/min (70-130); Calcium 7.7 mg/dL (7.8-10.44); Carbon Dioxide 23 mmol/L (22-29); Chloride 101 mmol/L (98-107); Estimated GFR-MDRD 60; Globulin 3.2 g/dL (2.4-3.5); Glucose 209 mg/dL (70-105); Magnesium 1.6 mg/dL (1.6-2.6); Phosphorus 2.5 mg/dL (2.3-4.7); Potassium 4.4 mmol/L (3.5-5.1); Protein, Total 6.5 g/dL (6.0-8.3); Sodium 131 mmol/L (136-145)
[2017-10-13] MEDS: Insulin Regular 300 UNITS/3 ML VIAL SC PRN ×2 (06:40→17:21)
--- NOTE | 2017-10-13 07:22 | PRG ---
DATE OF SERVICE: 10/13/2017 The patient is a 62-year-old male postop day #4 status post L5-S1 decompression and fusion for lumbar stenosis and spondylolisthesis. Following this procedure, the patient continued to have l ower extremity weakness and frequent falls with addition of some weakness in the upper extremities as well. This was evaluated further with a cervical MRI which is notable for significant central canal stenosis from C4-C6. He was seen and examined by Dr. Loyd and we have plans for a C4-C6 ACDF on 10/16/2017. He otherwise is doing well with regards to pain control, he is tolerating a regular t, and he is voiding appropriately. I have discussed the importance of wearing SCDs in the bed at a ll times and patient reports that he will be compliant. He has had some intermittent shortness of br eath and chest congestion which is currently being monitored and managed by the Hospitalist Service. We appreciate their input. Please reach out to Neurosurgery for additional questions or concerns.
[2017-10-13] MEDS: guaiFENesin ER 600 MG TAB PO SCH ×2 (08:42→21:04)
[2017-10-13] MEDS: Amoxicillin/Potassium Clav 875 MG TAB PO SCH ×2 (08:42→21:04)
[2017-10-13] MEDS: K-Phos Neutral 250 MG TAB PO SCH ×3 (08:42→17:20)
[2017-10-13] MEDS: Gabapentin 300 MG CAP PO SCH ×3 (08:42→21:03)
[2017-10-13] MEDS: Multivit, Therapeutic 1 TAB PO SCH (08:42)
[2017-10-13] MEDS: Polyethylene Glycol 3350 17 GM Packet PO SCH (08:43)
[2017-10-13] MEDS: Amlodipine 5 MG TAB PO SCH (08:43)
[2017-10-13] MEDS: Senokot S 8.6-50 MG TAB PO SCH ×2 (08:43→21:04)
[2017-10-13] MEDS: Sodium Chloride 0.9% 1,000 ML IV SCH (08:45)
--- NOTE | 2017-10-13 12:41 | PQF ---
CLINICAL DOCUMENTATION IMPROVEMENT CLARIFICATION FORM: ICD-10 Updated PLEASE DO AN ADDENDUM TO THE PROGRESS NOTE WITH ANY DOCUMENTATION UPDATES OR ADDITIONS AND CARRY THROUGH TO DC SUMMARY. THANK YOU. DATE: 10/13/17 ATTN: DR. TORRES Please exercise your independent, professional judgment in responding to the clarification form. Clinical indicators are provided on the bottom of this form for your review Please check appropriate box(s): [ ] Aspiration Pneumonia [ ] Simple Pneumonia (community acquired - nosocomial) [ ] Atelectasis [ ] Other diagnosis [ ] Unable to determine In addition, please specify: Present on Admission (POA): [ ] Yes [ ] No [ ] Unable to determine For continuity of documentation, please document condition throughout progress notes and discharge summary. Thank You. CLINICAL INDICATORS - SIGNS / SYMPTOMS / LABS 10/10 CXR: "LINEAR AND PATCHY DENSITY AT THE LEFT LUNG BASE WHICH MAY BE RELATED TO ATELECTASIS, BUT DEVELOPING PNEUMONIA IS A POSSIBILITY." NURSES NOTE 10/10: "AUDIBLE WHEEZING" PROGRESS NOTE 10/12: " ? ASPIRATION PNEUMONITIS" RISKS: SURGERY THIS ADMISSION TREATMENT: AUGMENTIN IV ZOSYN (10/11-10/12) IV VANCOMYCIN (10/11-10/12) (This form is maintained as a part of the permanent medical record) 2014 [employer], [employer]. All Rights Reserved [email or web address] Office: [phone] [email or web address]
[2017-10-13] MEDS: Insulin Glargine 10 UNITS in Pre-Filled Syringe 1 EACH SC SCH (21:01)
[2017-10-13] MEDS: tiZANidine HCl 4 MG TAB PO SCH (21:04)
--- NOTE | 2017-10-13 21:56 | PDOC.PN ---
- Subjective Encounter Start Date: 10/13/17 Encounter Start Time: 15:00 Patient seen and examined for med mgnt. No new complaints. No overnight events - Objective MAR Reviewed: Yes Vital Signs & Weight: Vital Signs (12 hours) Temp Pulse Resp BP Pulse Ox 10/13/17 21:11 98.7 F 98 18 95 10/13/17 20:00 98.7 F 98 18 175/91 H 95 10/13/17 15:26 168/74 H 10/13/17 15:07 98.2 F 100 16 175/96 H 94 L 10/13/17 11:03 97.4 F L 94 16 154/88 H 94 L Weight Weight 208 lb I&O: 10/12/17 10/13/17 10/14/17 06:59 06:59 06:59 Intake Total 2605 2800 1100 Output Total 2700 1800 1200 Balance -95 1000 -100 Result Diagrams: 10/13/17 05:05 10/13/17 05:05 Additional Labs: Accuchecks 10/13/17 10/13/17 10/13/17 21:03 15:46 11:08 POC Glucose 185 H 232 H 133 H 10/13/17 05:46 POC Glucose 209 H Phys Exam - Physical Examination Constitutional: NAD Respiratory: no wheezing, no rhonchi Scat rales at bases Cardiovascular: RRR, no rub Gastrointestinal: soft, non-tender, positive bowel sounds Musculoskeletal: no edema Neurological: moves all 4 limbs Dx/Plan - Plan DVT proph w/SCDs IMPRESSION: 1. RADHA on CKD 2 - improving 2. Electrolyte abn (Hyponatremia/Hypomagnesemia/Hypophosphatemia) - improving 3. Aspiration pneumonia - Not present on admission 4. HTN 5. DM2 - on sliding scale/Lantus 6 Abn LFTS - multifactorial - improving 7. Chronic Hep C / Chronic low back pain / Obesity BMI 33 PLAN: Cont Augmentin Cont IV NS @50 Blood culture neg Lisinopril/HCTZ and Metformin on hold Cont Amlodipine Cont Lantus with sliding scale Review of Systems - Review of Systems Respiratory: negative: Cough, Dry, Shortness of Breath, Hemoptysis, SOB with Excertion, Pleuritic Pain, Sputum, Wheezing Cardiovascular: negative: chest pain, palpitations, orthopnea, paroxysmal nocturnal dyspnea, edema, light headedness, other - Medications/Allergies Allergies/Adverse Reactions: Allergies Allergy/AdvReac Type Severity Reaction Status Date / Time ibuprofen Allergy Intermediate ELYSSA Verified 10/02/17 13:02 DOSE, SHORTNESS OF BREATH, DIZZINESS Medications: Current Medications Acetaminophen (Tylenol) 1,000 mg PO QIDPRN PRN PRN Reason: Headache/Fever or Pain Last Admin: 10/11/17 22:12 Dose: 1,000 mg Hydrocodone Bitart/Acetaminophen ([place] 10/325) 1 tab PO Q4H PRN PRN Reason: PAIN (1-3) Last Admin: 10/10/17 12:54 Dose: 1 tab Hydrocodone Bitart/Acetaminophen ([place] 10/325) 2 tab PO Q4H PRN PRN Reason: PAIN (4-6) Last Admin: 10/13/17 21:08 Dose: 2 tab Al Hydroxide/Mg Hydroxide (Maalox) 30 ml PO Q4H PRN PRN Reason: Heartburn or Indigestion Last Admin: 10/09/17 22:08 Dose: 30 ml Amlodipine Besylate (Norvasc) 5 mg PO DAILY [facility] Last Admin: 10/13/17 08:43 Dose: 5 mg Amoxicillin/Clavulanate Potassium (Augmentin) 875 mg PO Q12HR [facility] Last Admin: 10/13/17 21:04 Dose: 875 mg Dextrose/Water (Dextrose 50%) 25 gm SLOW IVP PRN PRN PRN Reason: Hypoglycemia Diphenhydramine HCl (Benadryl) 25 mg PO Q6H PRN PRN Reason: Itching Diphenhydramine HCl (Benadryl) 25 mg IVP Q6H PRN PRN Reason: Itching Gabapentin (Neurontin) 600 mg PO TID [facility] Last Admin: 10/13/17 21:03 Dose: 600 mg Glucagon (Glucagon) 1 mg IM PRN PRN PRN Reason: Hypoglycemia Guaifenesin (Mucinex) 600 mg PO Q12HR [facility] Last Admin: 10/13/17 21:04 Dose: 600 mg Hydralazine HCl (Apresoline) 10 mg SLOW IVP Q4H PRN PRN Reason: SBP Greater Than 180 Last Admin: 10/13/17 00:06 Dose: 10 mg Insulin Glargine 10 units/ (Miscellaneous Medication) 0.1 mls @ 0 mls/hr SC QPM [facility] Last Admin: 10/13/17 21:01 Dose: 0.1 mls Dextrose/Water (D5w) 1,000 mls @ 0 mls/hr IV .Q0M PRN; As Directed PRN Reason: Hypoglycemia Sodium Chloride (Normal Saline 0.9%) 1,000 mls @ 50 mls/hr IV .Q20H [facility] Last Admin: 10/13/17 08:45 Dose: 1,000 mls Insulin Human Regular (Humulin R) 0 units SC .MILD SLIDING SCALE PRN PRN Reason: Mild Correctional Scale Last Admin: 10/13/17 17:21 Dose: 3 units Insulin Human Regular (Humulin R) 0 units SC .BEDTIME SLIDING SC PRN PRN Reason: Bedtime Correctional Scale Last Admin: 10/10/17 21:42 Dose: 4 unit Magnesium Hydroxide (Milk Of Magnesium) 30 ml PO Q12H PRN PRN Reason: Constipation Miscellaneous Medication (Pharmacy To Dose) 1 each IVPB ASDIR [facility] Morphine Sulfate (Morphine) 2 mg SLOW IVP Q1H PRN PRN Reason: Moderate Breakthrough Pain Morphine Sulfate (Morphine) 4 mg SLOW IVP Q1H PRN PRN Reason: Severe Breakthrough Pain Multivitamins (Theragran) 1 tab PO DAILY [facility] Last Admin: 10/13/17 08:42 Dose: 1 tab Ondansetron HCl (Zofran) 4 mg IVP Q8H PRN PRN Reason: Nausea/Vomiting Pantoprazole Sodium (Protonix) 40 mg PO DAILY [facility] Last Admin: 10/13/17 08:42 Dose: 40 mg Phosphorus (Kphos Neutral) 250 mg PO TID-[facility] [place] Last Admin: 10/13/17 17:20 Dose: 250 mg Polyethylene Glycol (Miralax) 17 gm PO DAILY [facility] Last Admin: 10/13/17 08:43 Dose: Not Given Promethazine HCl (Phenergan) 12.5 mg IM Q4H PRN PRN Reason: Nausea/Vomiting Last Admin: 10/09/17 20:29 Dose: 12.5 mg Promethazine HCl (Phenergan) 12.5 mg PO Q4H PRN PRN Reason: Nausea/Vomiting Promethazine HCl (Phenergan Suppository) 12.5 mg NM Q4H PRN PRN Reason: Nausea/Vomiting Senna/Docusate Sodium (Senokot S) 1 tab PO BID [facility] Last Admin: 10/13/17 21:04 Dose: 1 tab Sodium Chloride (Flush - Normal Saline) 10 ml IVF Q12HR [facility] Last Admin: 10/13/17 21:05 Dose: 10 ml Sodium Chloride (Flush - Normal Saline) 10 ml IVF PRN PRN PRN Reason: Saline Flush Tamsulosin HCl (Flomax) 0.4 mg PO 0600 [facility] Last Admin: 10/13/17 04:14 Dose: 0.4 mg Tizanidine HCl (Zanaflex) 4 mg PO Q6H PRN PRN Reason: MUSCLE SPASM Tizanidine HCl (Zanaflex) 4 mg PO HS [facility] Last Admin: 10/13/17 21:04 Dose: 4 mg Tramadol HCl (Ultram) 50 mg PO Q6H PRN PRN Reason: PAIN (1-3) Last Admin: 10/10/17 18:05 Dose: 50 mg Tramadol HCl (Ultram) 100 mg PO Q6H PRN PRN Reason: PAIN (4-6)
[2017-10-14] MEDS: Sodium Chloride 0.9% 1,000 ML IV SCH (05:36)
[2017-10-14] MEDS: Tamsulosin HCl 0.4 MG CAP PO SCH (05:36)
[2017-10-14] MEDS: HYDROcodone/Acetaminophen 10/325 mg Tablet PO PRN ×2 (06:47→11:14)
[2017-10-14] MEDS: Senokot S 8.6-50 MG TAB PO SCH ×2 (06:47→21:27)
[2017-10-14] MEDS: Gabapentin 300 MG CAP PO SCH ×3 (08:44→21:25)
[2017-10-14] MEDS: K-Phos Neutral 250 MG TAB PO SCH ×3 (08:45→16:58)
[2017-10-14] MEDS: Amlodipine 5 MG TAB PO SCH ×2 (08:45→21:25)
[2017-10-14] MEDS: Amoxicillin/Potassium Clav 875 MG TAB PO SCH ×2 (08:45→21:25)
[2017-10-14] MEDS: guaiFENesin ER 600 MG TAB PO SCH ×2 (08:45→21:25)
[2017-10-14] MEDS: Multivit, Therapeutic 1 TAB PO SCH (08:45)
[2017-10-14] MEDS: Polyethylene Glycol 3350 17 GM Packet PO SCH (08:50)
[2017-10-14] MEDS ORDERED: Lisinopril 20 MG TAB PO SCH (10:15)
--- NOTE | 2017-10-14 11:33 | ULT ---
ULTRASOUND WITH DOPPLER DUPLEX VENOUS LOWER EXTREMITY BILATERAL: CPT: 78527 ICD-10-PCS: B54D HISTORY: Bilateral lower extremity edema. TECHNIQUE: Color flow Doppler, spectral waveform analysis of pulsed Doppler, and moore-scale imaging with susan charlotte and augmentation, were used to evaluate the bilateral common femoral, femoral, popliteal, soil conservation technician ior tibial, and superficial femoral, veins; and the proximal portions of the profunda femoral and gre ater saphenous, veins. FINDINGS: There is appropriate compressibility and flow within the imaged deep vein system of each lower extrem ity. IMPRESSION: No deep vein thrombosis. POS: [facility]
[2017-10-14] MEDS ORDERED: Furosemide 20 MG/2 ML VIAL SLOW IVP SCH (16:15)
[2017-10-14] MEDS: Insulin Regular 300 UNITS/3 ML VIAL SC PRN (17:54)
[2017-10-14] MEDS: Insulin Glargine 10 UNITS in Pre-Filled Syringe 1 EACH SC SCH (21:24)
[2017-10-14] MEDS: tiZANidine HCl 4 MG TAB PO SCH (21:26)
--- NOTE | 2017-10-14 23:42 | PDOC.PN ---
- Subjective Encounter Start Date: 10/14/17 Encounter Start Time: 17:00 Patient seen and examined for med mngt. No new complaints. No overnight events - Objective MAR Reviewed: Yes Vital Signs & Weight: Vital Signs (12 hours) Temp Pulse Resp BP BP Pulse Ox 10/14/17 21:25 94 155/81 H 10/14/17 20:00 97.9 F 94 18 94 L 10/14/17 15:37 98.4 F 97 20 167/95 H 96 Weight Weight 208 lb I&O: 10/13/17 10/14/17 10/15/17 06:59 06:59 06:59 Intake Total 2800 1700 1150 Output Total 1800 2200 Balance 1000 -500 1150 Result Diagrams: 10/15/17 05:17 10/15/17 05:17 Additional Labs: Accuchecks 10/14/17 10/14/17 10/14/17 21:25 15:40 11:09 POC Glucose 173 H 158 H 157 H 10/14/17 05:43 POC Glucose 121 H Phys Exam - Physical Examination Constitutional: NAD Respiratory: no wheezing, no rhonchi Cardiovascular: RRR, no rub Gastrointestinal: soft, non-tender, positive bowel sounds Musculoskeletal: edema present (1 +) Dx/Plan - Plan DVT proph w/SCDs IMPRESSION: 1. RADHA on CKD 2 - improving 2. Electrolyte abn (Hyponatremia/Hypomagnesemia/Hypophosphatemia) - improving 3. Aspiration pneumonia - Not present on admission - on Augmentin 4. HTN 5. DM2 - on sliding scale/Lantus 6 Abn LFTS - multifactorial - improving 7. Chronic Hep C / Chronic low back pain / Obesity BMI 33 PLAN: DC IVF Cont Augmentin Resume Lisinopril/HCTZ in AM 1 dose of 20 mg IV Lasix Cont Amlodipine Cont Lantus with sliding scale Cont other PRN HTN meds Review of Systems - Review of Systems Respiratory: negative: Cough, Dry, Shortness of Breath, Hemoptysis, SOB with Excertion, Pleuritic Pain, Sputum, Wheezing Cardiovascular: negative: chest pain, palpitations, orthopnea, paroxysmal nocturnal dyspnea, edema, light headedness, other - Medications/Allergies Allergies/Adverse Reactions: Allergies Allergy/AdvReac Type Severity Reaction Status Date / Time ibuprofen Allergy Intermediate ELYSSA Verified 10/02/17 13:02 DOSE, SHORTNESS OF BREATH, DIZZINESS Medications: Current Medications Hydrocodone Bitart/Acetaminophen ([place] 10/325) 1 tab PO Q4H PRN PRN Reason: PAIN (1-3) Last Admin: 10/14/17 06:47 Dose: 1 tab Hydrocodone Bitart/Acetaminophen ([place] 10/325) 2 tab PO Q4H PRN PRN Reason: PAIN (4-6) Last Admin: 10/14/17 11:14 Dose: 2 tab Al Hydroxide/Mg Hydroxide (Maalox) 30 ml PO Q4H PRN PRN Reason: Heartburn or Indigestion Last Admin: 10/09/17 22:08 Dose: 30 ml Amlodipine Besylate (Norvasc) 5 mg PO BID [facility] Last Admin: 10/14/17 21:25 Dose: 5 mg Amoxicillin/Clavulanate Potassium (Augmentin) 875 mg PO Q12HR [facility] Last Admin: 10/14/17 21:25 Dose: 875 mg Dextrose/Water (Dextrose 50%) 25 gm SLOW IVP PRN PRN PRN Reason: Hypoglycemia Diphenhydramine HCl (Benadryl) 25 mg PO Q6H PRN PRN Reason: Itching Diphenhydramine HCl (Benadryl) 25 mg IVP Q6H PRN PRN Reason: Itching Gabapentin (Neurontin) 600 mg PO TID [facility] Last Admin: 10/14/17 21:25 Dose: 600 mg Glucagon (Glucagon) 1 mg IM PRN PRN PRN Reason: Hypoglycemia Guaifenesin (Mucinex) 600 mg PO Q12HR [facility] Last Admin: 10/14/17 21:25 Dose: 600 mg Lisinopril/HCTZ (Prinizide 20-12.5) 1 tab PO DAILY [facility] Hydralazine HCl (Apresoline) 10 mg SLOW IVP Q4H PRN PRN Reason: SBP Greater Than 180 Last Admin: 10/13/17 00:06 Dose: 10 mg Insulin Glargine 10 units/ (Miscellaneous Medication) 0.1 mls @ 0 mls/hr SC QPM [facility] Last Admin: 10/14/17 21:24 Dose: 0.1 mls Dextrose/Water (D5w) 1,000 mls @ 0 mls/hr IV .Q0M PRN; As Directed PRN Reason: Hypoglycemia Insulin Human Regular (Humulin R) 0 units SC .MILD SLIDING SCALE PRN PRN Reason: Mild Correctional Scale Last Admin: 10/14/17 17:54 Dose: 2 units Insulin Human Regular (Humulin R) 0 units SC .BEDTIME SLIDING SC PRN PRN Reason: Bedtime Correctional Scale Last Admin: 10/10/17 21:42 Dose: 4 unit Magnesium Hydroxide (Milk Of Magnesium) 30 ml PO Q12H PRN PRN Reason: Constipation Miscellaneous Medication (Pharmacy To Dose) 1 each IVPB ASDIR [facility] Morphine Sulfate (Morphine) 2 mg SLOW IVP Q1H PRN PRN Reason: Moderate Breakthrough Pain Morphine Sulfate (Morphine) 4 mg SLOW IVP Q1H PRN PRN Reason: Severe Breakthrough Pain Multivitamins (Theragran) 1 tab PO DAILY [facility] Last Admin: 10/14/17 08:45 Dose: 1 tab Ondansetron HCl (Zofran) 4 mg IVP Q8H PRN PRN Reason: Nausea/Vomiting Pantoprazole Sodium (Protonix) 40 mg PO DAILY [facility] Last Admin: 10/14/17 08:45 Dose: 40 mg Phosphorus (Kphos Neutral) 250 mg PO TID-[facility] Last Admin: 10/14/17 16:58 Dose: 250 mg Polyethylene Glycol (Miralax) 17 gm PO DAILY [facility] Last Admin: 10/14/17 08:50 Dose: Not Given Promethazine HCl (Phenergan) 12.5 mg IM Q4H PRN PRN Reason: Nausea/Vomiting Last Admin: 10/09/17 20:29 Dose: 12.5 mg Promethazine HCl (Phenergan) 12.5 mg PO Q4H PRN PRN Reason: Nausea/Vomiting Promethazine HCl (Phenergan Suppository) 12.5 mg HI Q4H PRN PRN Reason: Nausea/Vomiting Senna/Docusate Sodium (Senokot S) 1 tab PO BID [facility] Last Admin: 10/14/17 21:27 Dose: Not Given Sodium Chloride (Flush - Normal Saline) 10 ml IVF Q12HR [facility] Last Admin: 10/14/17 21:26 Dose: 10 ml Sodium Chloride (Flush - Normal Saline) 10 ml IVF PRN PRN PRN Reason: Saline Flush Tamsulosin HCl (Flomax) 0.4 mg PO 0600 [facility] Last Admin: 10/14/17 05:36 Dose: 0.4 mg Tizanidine HCl (Zanaflex) 4 mg PO Q6H PRN PRN Reason: MUSCLE SPASM Tizanidine HCl (Zanaflex) 4 mg PO HS [facility] Last Admin: 10/14/17 21:26 Dose: 4 mg Tramadol HCl (Ultram) 50 mg PO Q6H PRN PRN Reason: PAIN (1-3) Last Admin: 10/10/17 18:05 Dose: 50 mg Tramadol HCl (Ultram) 100 mg PO Q6H PRN PRN Reason: PAIN (4-6)
[2017-10-15 05:42] LABS: #Eosinphils 0.1 thou/uL (0.0-0.7); #Lymphocytes 0.6 thou/uL (1.20-3.40); #Monocytes 0.6 thou/uL (0.11-0.59); #Neutrophils 3.8 thou/uL (1.40-6.50); %Basophils 0.2 % (0.0-1.0); %Eosinophils 1.7 % (0.0-10.0); %Lymphocytes 12.1 % (21.0-51.0); %Monocytes 10.9 % (0.0-10.0); %Neutrophils 75.1 % (42.0-75.0); Hemoglobin 9.4 g/dL (14.0-18.0); Mean Corpuscular HGB CONC 35.2 g/dL (32.0-36.0); Mean Corpuscular Volume 93.9 fL (78.0-98.0); Mean Platelet Volume 6.6 fL (7.4-10.4); Platelet Count 144 thou/uL (130-400); RBC Distribution Width 13.8 % (11.5-14.5); Red Blood Cell (RBC) Count 2.85 mill/uL (4.70-6.10); White Blood Cell (WBC) Count 5.1 thou/uL (4.8-10.8)
[2017-10-15] MEDS: Tamsulosin HCl 0.4 MG CAP PO SCH (05:55)
[2017-10-15 06:07] LABS: Anion Gap 11 mmol/L (10-20); BUN (Urea Nitrogen) 15 mg/dL (8.4-25.7); Calc. Creatinine Clearance 102 mL/min (70-130); Calcium 7.5 mg/dL (7.8-10.44); Carbon Dioxide 23 mmol/L (22-29); Chloride 105 mmol/L (98-107); Estimated GFR-MDRD 74; Glucose 195 mg/dL (70-105); Potassium 4.1 mmol/L (3.5-5.1); Sodium 135 mmol/L (136-145)
[2017-10-15] MEDS: Insulin Regular 300 UNITS/3 ML VIAL SC PRN ×3 (06:39→17:36)
--- NOTE | 2017-10-15 08:32 | PRG ---
DATE OF SERVICE: 10/15/2017 Overnight, patient had no events. He reports his pain continues to be well controlled. He has been up with assistance to the chair and to the bathroom several times. He had bilateral lower extremity ultrasounds yesterday, which were negative for DVT. He reports his shortness of breath seems to be improving today and he looks significantly less labored in his breathing in my opinion. He continues to tolerate his diet well and is now having regular bowel movements. The patient is visibly frustrated this morning, as he reports that somebody has lost his shorts. He is now required to wear the paper scrubs provided by the hospital. I will attempt to locate his clothing and I will notify his surgery time tomorrow. Also, let him know that this is subject to change depending on the flow of the day tomorrow. I discussed his current complaints with the nursing staff as well and they will continue to investigate in regard to the loss of his clothing. NPO at midnight with plan for C4-6 ACDF tomorrow. FLORECITA
[2017-10-15] MEDS: guaiFENesin ER 600 MG TAB PO SCH (08:49)
[2017-10-15] MEDS: Amlodipine 5 MG TAB PO SCH ×2 (08:49→21:49)
[2017-10-15] MEDS: Amoxicillin/Potassium Clav 875 MG TAB PO SCH ×2 (08:49→21:49)
[2017-10-15] MEDS: Multivit, Therapeutic 1 TAB PO SCH (08:49)
[2017-10-15] MEDS: Gabapentin 300 MG CAP PO SCH ×3 (08:49→21:49)
[2017-10-15] MEDS: Polyethylene Glycol 3350 17 GM Packet PO SCH (08:50)
[2017-10-15] MEDS: Lisinopril/Hydrochlorothiazide 20 mg/12.5 mg Tablet PO SCH (08:50)
[2017-10-15] MEDS: Senokot S 8.6-50 MG TAB PO SCH ×2 (08:50→21:50)
[2017-10-15] MEDS: K-Phos Neutral 250 MG TAB PO SCH ×3 (08:50→17:36)
[2017-10-15] MEDS ORDERED: Lisinopril 20 MG TAB PO SCH (09:00)
[2017-10-15] MEDS ORDERED: Magnesium Sulfate 2 GM in Sodium Chloride 0.9% 100 ML IVPB SCH (18:15)
--- NOTE | 2017-10-15 18:15 | PDOC.PN ---
- Subjective Encounter Start Date: 10/15/17 Encounter Start Time: 12:00 Patient seen and examined for med mngt. Diarrhea +. No N/V/Abd pain. No overnight events - Objective MAR Reviewed: Yes Vital Signs & Weight: Vital Signs (12 hours) Temp Pulse Resp BP BP Pulse Ox 10/15/17 15:51 98.3 F 97 18 145/77 H 94 L 10/15/17 12:00 98.2 F 96 18 146/74 H 92 L 10/15/17 08:50 103 H 155/80 H 10/15/17 08:49 103 H 155/80 H 10/15/17 08:10 98.2 F 96 16 10/15/17 08:00 98.1 F 104 H 16 155/80 H 94 L Weight Weight 208 lb I&O: 10/14/17 10/15/17 10/16/17 06:59 06:59 06:59 Intake Total 1700 1750 1440 Output Total 2200 300 Balance -500 1450 1440 Result Diagrams: 10/15/17 05:17 10/15/17 05:17 Additional Labs: Accuchecks 10/15/17 10/15/17 10/15/17 15:36 10:47 06:12 POC Glucose 241 H 214 H 205 H 10/14/17 21:25 POC Glucose 173 H Phys Exam - Physical Examination Constitutional: NAD Respiratory: no wheezing, no rhonchi Cardiovascular: RRR, no rub Gastrointestinal: soft, non-tender, no distention, positive bowel sounds Musculoskeletal: no edema Neurological: moves all 4 limbs Dx/Plan - Plan incentive spirometry, DVT proph w/SCDs IMPRESSION: 1. RADHA on CKD 2 - improving 2. Electrolyte abn (Hyponatremia/Hypomagnesemia/Hypophosphatemia) - improving 3. Aspiration pneumonia - Not present on admission - on Augmentin - improving 4. HTN 5. DM2 - on sliding scale/Lantus 6 Abn LFTS - multifactorial - improving 7. Chronic Hep C / Chronic low back pain / Obesity BMI 33 PLAN: Check stool for Cdiff AM labs Cont Augmentin Cont Lisinopril/HCTZ with Amlodipine Cont Lantus with sliding scale Cont other PRN HTN meds DC KPhos DC Guafenesin Review of Systems - Review of Systems Respiratory: negative: Cough, Dry, Shortness of Breath, Hemoptysis, SOB with Excertion, Pleuritic Pain, Sputum, Wheezing Cardiovascular: negative: chest pain, palpitations, orthopnea, paroxysmal nocturnal dyspnea, edema, light headedness, other - Medications/Allergies Allergies/Adverse Reactions: Allergies Allergy/AdvReac Type Severity Reaction Status Date / Time ibuprofen Allergy Intermediate ELYSSA Verified 10/02/17 13:02 DOSE, SHORTNESS OF BREATH, DIZZINESS Medications: Current Medications Hydrocodone Bitart/Acetaminophen ([place] 10/325) 1 tab PO Q4H PRN PRN Reason: PAIN (1-3) Last Admin: 10/14/17 06:47 Dose: 1 tab Hydrocodone Bitart/Acetaminophen ([place] 10/325) 2 tab PO Q4H PRN PRN Reason: PAIN (4-6) Last Admin: 10/14/17 11:14 Dose: 2 tab Al Hydroxide/Mg Hydroxide (Maalox) 30 ml PO Q4H PRN PRN Reason: Heartburn or Indigestion Last Admin: 10/09/17 22:08 Dose: 30 ml Amlodipine Besylate (Norvasc) 5 mg PO BID [facility] Last Admin: 10/15/17 08:49 Dose: 5 mg Amoxicillin/Clavulanate Potassium (Augmentin) 875 mg PO Q12HR [facility] Last Admin: 10/15/17 08:49 Dose: 875 mg Dextrose/Water (Dextrose 50%) 25 gm SLOW IVP PRN PRN PRN Reason: Hypoglycemia Diphenhydramine HCl (Benadryl) 25 mg PO Q6H PRN PRN Reason: Itching Diphenhydramine HCl (Benadryl) 25 mg IVP Q6H PRN PRN Reason: Itching Gabapentin (Neurontin) 600 mg PO TID [facility] Last Admin: 10/15/17 14:33 Dose: 600 mg Glucagon (Glucagon) 1 mg IM PRN PRN PRN Reason: Hypoglycemia Guaifenesin (Mucinex) 600 mg PO Q12HR [facility] Last Admin: 10/15/17 08:49 Dose: 600 mg Lisinopril/HCTZ (Prinizide 20-12.5) 1 tab PO DAILY [facility] Last Admin: 10/15/17 08:50 Dose: 1 tab Hydralazine HCl (Apresoline) 10 mg SLOW IVP Q4H PRN PRN Reason: SBP Greater Than 180 Last Admin: 10/13/17 00:06 Dose: 10 mg Insulin Glargine 10 units/ (Miscellaneous Medication) 0.1 mls @ 0 mls/hr SC QPM [facility] Last Admin: 10/14/17 21:24 Dose: 0.1 mls Dextrose/Water (D5w) 1,000 mls @ 0 mls/hr IV .Q0M PRN; As Directed PRN Reason: Hypoglycemia Magnesium Sulfate 2 gm/ Sodium (Chloride) 104 mls @ 100 mls/hr IVPB [facility] Insulin Human Regular (Humulin R) 0 units SC .MILD SLIDING SCALE PRN PRN Reason: Mild Correctional Scale Last Admin: 10/15/17 17:36 Dose: 3 units Insulin Human Regular (Humulin R) 0 units SC .BEDTIME SLIDING SC PRN PRN Reason: Bedtime Correctional Scale Last Admin: 10/10/17 21:42 Dose: 4 unit Magnesium Hydroxide (Milk Of Magnesium) 30 ml PO Q12H PRN PRN Reason: Constipation Miscellaneous Medication (Pharmacy To Dose) 1 each IVPB ASDIR [facility] Morphine Sulfate (Morphine) 2 mg SLOW IVP Q1H PRN PRN Reason: Moderate Breakthrough Pain Morphine Sulfate (Morphine) 4 mg SLOW IVP Q1H PRN PRN Reason: Severe Breakthrough Pain Multivitamins (Theragran) 1 tab PO DAILY [facility] Last Admin: 10/15/17 08:49 Dose: 1 tab Ondansetron HCl (Zofran) 4 mg IVP Q8H PRN PRN Reason: Nausea/Vomiting Pantoprazole Sodium (Protonix) 40 mg PO DAILY [facility] Last Admin: 10/15/17 08:49 Dose: 40 mg Phosphorus (Kphos Neutral) 250 mg PO TID-[facility] Last Admin: 10/15/17 17:36 Dose: 250 mg Polyethylene Glycol (Miralax) 17 gm PO DAILY [facility] Last Admin: 10/15/17 08:50 Dose: Not Given Promethazine HCl (Phenergan) 12.5 mg IM Q4H PRN PRN Reason: Nausea/Vomiting Last Admin: 10/09/17 20:29 Dose: 12.5 mg Promethazine HCl (Phenergan) 12.5 mg PO Q4H PRN PRN Reason: Nausea/Vomiting Promethazine HCl (Phenergan Suppository) 12.5 mg NC Q4H PRN PRN Reason: Nausea/Vomiting Senna/Docusate Sodium (Senokot S) 1 tab PO BID [facility] Last Admin: 10/15/17 08:50 Dose: Not Given Sodium Chloride (Flush - Normal Saline) 10 ml IVF Q12HR [facility] Last Admin: 10/15/17 08:50 Dose: 10 ml Sodium Chloride (Flush - Normal Saline) 10 ml IVF PRN PRN PRN Reason: Saline Flush Tamsulosin HCl (Flomax) 0.4 mg PO 0600 [facility] Last Admin: 10/15/17 05:55 Dose: 0.4 mg Tizanidine HCl (Zanaflex) 4 mg PO Q6H PRN PRN Reason: MUSCLE SPASM Tizanidine HCl (Zanaflex) 4 mg PO HS [facility] Last Admin: 10/14/17 21:26 Dose: 4 mg Tramadol HCl (Ultram) 50 mg PO Q6H PRN PRN Reason: PAIN (1-3) Last Admin: 10/10/17 18:05 Dose: 50 mg Tramadol HCl (Ultram) 100 mg PO Q6H PRN PRN Reason: PAIN (4-6)
[2017-10-15] MEDS: Insulin Glargine 10 UNITS in Pre-Filled Syringe 1 EACH SC SCH (21:50)
[2017-10-15] MEDS: tiZANidine HCl 4 MG TAB PO SCH (21:51)
[2017-10-15] MEDS: HYDROcodone/Acetaminophen 10/325 mg Tablet PO PRN (21:53)
[2017-10-15] MEDS: hydrALAZINE 20 MG/ML VIAL SLOW IVP PRN (22:54)
[2017-10-16] MEDS: Tamsulosin HCl 0.4 MG CAP PO SCH (05:49)
[2017-10-16] MEDS: HYDROcodone/Acetaminophen 10/325 mg Tablet PO PRN ×4 (05:49→23:28)
[2017-10-16 06:08] LABS: ALT (SGPT) 20 U/L (8-55); AST (SGOT) 24 U/L (5-34); Albumin 2.8 g/dL (3.5-5.0); Alkaline Phosphatase 99 U/L (40-150); Anion Gap 8 mmol/L (10-20); BUN (Urea Nitrogen) 11 mg/dL (8.4-25.7); Bilirubin, Total 1.1 mg/dL (0.2-1.2); Calc. Creatinine Clearance 126 mL/min (70-130); Calcium 7.6 mg/dL (7.8-10.44); Carbon Dioxide 26 mmol/L (22-29); Chloride 106 mmol/L (98-107); Estimated GFR-MDRD Greater than 90; Globulin 2.9 g/dL (2.4-3.5); Glucose 160 mg/dL (70-105); Magnesium 1.4 mg/dL (1.6-2.6); Phosphorus 2.3 mg/dL (2.3-4.7); Potassium 3.4 mmol/L (3.5-5.1); Protein, Total 5.7 g/dL (6.0-8.3); Sodium 137 mmol/L (136-145)
[2017-10-16] MEDS ORDERED: Magnesium Sulfate 4 GM in Sodium Chloride 0.9% 250 ML 250 ML IVPB SCH (07:45)
[2017-10-16] MEDS: Lisinopril/Hydrochlorothiazide 20 mg/12.5 mg Tablet PO SCH (08:05)
[2017-10-16] MEDS: Amlodipine 5 MG TAB PO SCH ×2 (08:05→20:52)
[2017-10-16] MEDS: Amoxicillin/Potassium Clav 875 MG TAB PO SCH ×2 (09:00→20:53)
[2017-10-16] MEDS: Multivit, Therapeutic 1 TAB PO SCH (09:00)
[2017-10-16] MEDS: Saccharomyces boulardii 250 MG CAP PO SCH (09:00)
[2017-10-16] MEDS: Gabapentin 300 MG CAP PO SCH ×3 (09:00→20:53)
[2017-10-16] MEDS: Polyethylene Glycol 3350 17 GM Packet PO SCH (09:00)
[2017-10-16] MEDS: Potassium Chloride 10 MEQ TAB PO SCH ×2 (09:00→17:12)
[2017-10-16] MEDS: Senokot S 8.6-50 MG TAB PO SCH ×2 (09:00→20:54)
[2017-10-16] MEDS ORDERED: Sodium Chloride 0.9% 10 ML ONE (11:02)
[2017-10-16] MEDS ORDERED: CEFAZOLIN/Water 2 GM/20 ML SYRINGE ONE (12:14)
[2017-10-16] MEDS ORDERED: PHENYLEPHRINE-NS 100 MCG/ML 10 ML SYRINGE ONE (12:28)
[2017-10-16] MEDS ORDERED: PROPOFOL 200 MG/20 ML VIAL ONE (12:28)
[2017-10-16] MEDS ORDERED: Lidocaine 1% PF 5 ML VIAL ONE (12:28)
[2017-10-16] MEDS ORDERED: ePHEDrine/0.9% NaCl/PF SYRINGE 50 mg/10 ml ONE (12:28)
[2017-10-16] MEDS ORDERED: Fentanyl 100 MCG/2 ML VIAL ONE ×4 (12:31→14:41)
[2017-10-16] MEDS ORDERED: SUGAMMADEX SODIUM 500 MG/5 ML VIAL ONE (13:40)
[2017-10-16] MEDS ORDERED: CEFAZOLIN/Water 2 GM/20 ML SYRINGE SLOW IVP SCH (14:00)
[2017-10-16] MEDS ORDERED: Ketorolac Tromethamine 30 MG/ML VIAL ONE (14:05)
[2017-10-16] MEDS ORDERED: HYDROmorphone 0.5 MG/0.5 ML SYRINGE ONE (14:14)
[2017-10-16] MEDS: Insulin Regular 300 UNITS/3 ML VIAL SC PRN (17:12)
--- NOTE | 2017-10-16 19:16 | OP ---
DATE OF PROCEDURE: 10/16/2017 SURGEON: Faustino Loyd M.D. CELERY STRIPPER: Andrew Herr PA-C PROCEDURES: Anterior cervical diskectomy C4 through C6, interbody arthrodesis, intravertebral biomec hanical device, local morselized autograft, demineralized bone matrix, anterior titanium instrumentat ion C4-C6. PROCEDURE IN DETAIL: The patient was brought to the operating room and intubated. He was positioned supine with head in modest extension on a gel-filled donut. An incision was made in the right prece rvical area and dissecting medial to the sternocleidomastoid muscle, identified the anterior cervical spine and our level was confirmed by x-ray. We debrided anterior osteophytes, placed distraction ac ross the disc spaces, and using the operating microscope and microdissection techniques, completely d ecompressed the intravertebral discs down to the level of the dura from foramen to foramen at both af fected levels. The bony endplates were then decorticated for the purpose of arthrodesis and appropri ately sized intravertebral biomechanical PEEK device was brought into the field, filled with deminera lized bone matrix, local morselized autograft, and tapped into place securely at C4-C5 and C5-C6. Ne xt, an anterior plate was brought into the field and secured to C4, C5, and C6 using two 14 mm screws at each level. The wound was then extensively irrigated, immaculate hemostasis was secured. The wo und was closed in anatomic layers.
[2017-10-16] MEDS: CEFAZOLIN/Water 2 GM/20 ML SYRINGE SLOW IVP SCH (20:53)
[2017-10-16] MEDS: Insulin Glargine 15 UNITS in Pre-Filled Syringe 1 EACH SC SCH (20:54)
[2017-10-16] MEDS: tiZANidine HCl 4 MG TAB PO SCH (21:54)
--- NOTE | 2017-10-16 22:30 | PDOC.PN ---
- Subjective Encounter Start Date: 10/16/17 Encounter Start Time: 15:00 Patient seen and examined for med mngt. s/p ACDF today. Pain controlled. Diarrhea improved. No new complaints. No overnight events - Objective MAR Reviewed: Yes Vital Signs & Weight: Vital Signs (12 hours) Temp Pulse Resp BP BP Pulse Ox 10/16/17 20:52 92 150/77 H 10/16/17 20:00 97.5 F L 92 16 150/77 H 96 10/16/17 15:02 97.6 F 87 16 159/79 H 96 Weight Weight 208 lb I&O: 10/15/17 10/16/17 10/17/17 06:59 06:59 06:59 Intake Total 1750 2275 880 Output Total 300 Balance 1450 2275 880 Result Diagrams: 10/15/17 05:17 10/17/17 04:23 Additional Labs: Accuchecks 10/16/17 10/16/17 10/16/17 20:29 16:04 05:39 POC Glucose 287 H 175 H 159 H Laboratory Tests 10/16/17 04:41 Potassium 3.4 L Magnesium 1.4 L Phys Exam - Physical Examination Constitutional: NAD Respiratory: no wheezing, no rhonchi Cardiovascular: RRR, no rub Gastrointestinal: soft, non-tender, positive bowel sounds Musculoskeletal: no edema Neurological: moves all 4 limbs Dx/Plan - Plan DVT proph w/SCDs IMPRESSION: 1. Electrolyte abn - hypokalemia, hypomagnesemia 2. Aspiration pneumonia - Not present on admission - on Augmentin - improving 3. DM2 - on sliding scale/Lantus 4. HTN 5. Abn LFTS /RADHA on CKD 2 - resolved/ Chronic Hep C / Chronic low back pain / Obesity BMI 33/Hypophosphatemia/Hyponatremia/Diarrhea - resolved PLAN: Replace Potassium and Magnessium AM labs Cont Augmentin Cont Lisinopril/HCTZ /Amlodipine Cont Lantus with sliding scale Cont other PRN HTN meds Review of Systems - Review of Systems Respiratory: negative: Cough, Dry, Shortness of Breath, Hemoptysis, SOB with Excertion, Pleuritic Pain, Sputum, Wheezing Cardiovascular: negative: chest pain, palpitations, orthopnea, paroxysmal nocturnal dyspnea, edema, light headedness, other - Medications/Allergies Allergies/Adverse Reactions: Allergies Allergy/AdvReac Type Severity Reaction Status Date / Time ibuprofen Allergy Intermediate ELYSSA Verified 10/02/17 13:02 DOSE, SHORTNESS OF BREATH, DIZZINESS Medications: Current Medications Hydrocodone Bitart/Acetaminophen ([place] 10/325) 1 tab PO Q4H PRN PRN Reason: PAIN (1-3) Last Admin: 10/14/17 06:47 Dose: 1 tab Hydrocodone Bitart/Acetaminophen ([place] 10/325) 2 tab PO Q4H PRN PRN Reason: PAIN (4-6) Last Admin: 10/16/17 19:09 Dose: 2 tab Al Hydroxide/Mg Hydroxide (Maalox) 30 ml PO Q4H PRN PRN Reason: Heartburn or Indigestion Last Admin: 10/09/17 22:08 Dose: 30 ml Amlodipine Besylate (Norvasc) 5 mg PO BID [facility] Last Admin: 10/16/17 20:52 Dose: 5 mg Amoxicillin/Clavulanate Potassium (Augmentin) 875 mg PO Q12HR [facility] Last Admin: 10/16/17 20:53 Dose: 875 mg Cefazolin Sodium (Ancef) 2 gm SLOW IVP 0500,1300,2100 [facility] Stop: 10/17/17 05:01 Last Admin: 10/16/17 20:53 Dose: 2 gm Dextrose/Water (Dextrose 50%) 25 gm SLOW IVP PRN PRN PRN Reason: Hypoglycemia Diphenhydramine HCl (Benadryl) 25 mg PO Q6H PRN PRN Reason: Itching Diphenhydramine HCl (Benadryl) 25 mg IVP Q6H PRN PRN Reason: Itching Gabapentin (Neurontin) 600 mg PO TID [facility] Last Admin: 10/16/17 20:53 Dose: 600 mg Glucagon (Glucagon) 1 mg IM PRN PRN PRN Reason: Hypoglycemia Lisinopril/HCTZ (Prinizide 20-12.5) 1 tab PO DAILY [facility] Last Admin: 10/16/17 08:05 Dose: 1 tab Hydralazine HCl (Apresoline) 10 mg SLOW IVP Q4H PRN PRN Reason: SBP Greater Than 180 Last Admin: 10/15/17 22:54 Dose: 10 mg Dextrose/Water (D5w) 1,000 mls @ 0 mls/hr IV .Q0M PRN; As Directed PRN Reason: Hypoglycemia Insulin Glargine 15 units/ (Miscellaneous Medication) 0.15 mls @ 0 mls/hr [facility] Last Admin: 10/16/17 20:54 Dose: 0.15 mls Insulin Human Regular (Humulin R) 0 units SC .BEDTIME SLIDING SC PRN PRN Reason: Bedtime Correctional Scale Last Admin: 10/10/17 21:42 Dose: 4 unit Insulin Human Regular (Humulin R) 0 units SC .MODERATE SLIDING SC PRN PRN Reason: Moderate Correctional Scale Last Admin: 10/16/17 17:12 Dose: 2 units Magnesium Hydroxide (Milk Of Magnesium) 30 ml PO Q12H PRN PRN Reason: Constipation Miscellaneous Medication (Pharmacy To Dose) 1 each IVPB ASDIR [facility] Morphine Sulfate (Morphine) 2 mg SLOW IVP Q1H PRN PRN Reason: Moderate Breakthrough Pain Morphine Sulfate (Morphine) 4 mg SLOW IVP Q1H PRN PRN Reason: Severe Breakthrough Pain Multivitamins (Theragran) 1 tab PO DAILY [facility] Last Admin: 10/16/17 09:00 Dose: Not Given Ondansetron HCl (Zofran) 4 mg IVP Q8H PRN PRN Reason: Nausea/Vomiting Pantoprazole Sodium (Protonix) 40 mg PO DAILY [facility] Last Admin: 10/16/17 09:00 Dose: Not Given Polyethylene Glycol (Miralax) 17 gm PO DAILY [facility] Last Admin: 10/16/17 09:00 Dose: Not Given Potassium [facility] Last Admin: 10/16/17 17:12 Dose: 10 meq Promethazine HCl (Phenergan) 12.5 mg IM Q4H PRN PRN Reason: Nausea/Vomiting Last Admin: 10/09/17 20:29 Dose: 12.5 mg Promethazine HCl (Phenergan) 12.5 mg PO Q4H PRN PRN Reason: Nausea/Vomiting Promethazine HCl (Phenergan Suppository) 12.5 mg [place] Q4H PRN PRN Reason: Nausea/Vomiting Saccharomyces Boulardii (Florastor) 250 mg PO DAILY [facility] Last Admin: 10/16/17 09:00 Dose: Not Given Senna/Docusate Sodium (Senokot S) 1 tab PO BID [facility] Last Admin: 10/16/17 20:54 Dose: Not Given Sodium Chloride (Flush - Normal Saline) 10 ml IVF Q12HR [facility] Last Admin: 10/16/17 20:54 Dose: 10 ml Sodium Chloride (Flush - Normal Saline) 10 ml IVF PRN PRN PRN Reason: Saline Flush Tamsulosin HCl (Flomax) 0.4 mg PO 0600 [facility] Last Admin: 10/16/17 05:49 Dose: 0.4 mg Tizanidine HCl (Zanaflex) 4 mg PO Q6H PRN PRN Reason: MUSCLE SPASM Tizanidine HCl (Zanaflex) 4 mg PO HS [facility] Last Admin: 10/16/17 21:54 Dose: 4 mg Tramadol HCl (Ultram) 50 mg PO Q6H PRN PRN Reason: PAIN (1-3) Last Admin: 10/10/17 18:05 Dose: 50 mg Tramadol HCl (Ultram) 100 mg PO Q6H PRN PRN Reason: PAIN (4-6)
[2017-10-17] MEDS: HYDROcodone/Acetaminophen 10/325 mg Tablet PO PRN (03:40)
[2017-10-17] MEDS: CEFAZOLIN/Water 2 GM/20 ML SYRINGE SLOW IVP SCH (05:08)
[2017-10-17] MEDS: Tamsulosin HCl 0.4 MG CAP PO SCH (05:09)
[2017-10-17 05:46] LABS: Anion Gap 12 mmol/L (10-20); BUN (Urea Nitrogen) 11 mg/dL (8.4-25.7); Calc. Creatinine Clearance 92 mL/min (70-130); Calcium 8.1 mg/dL (7.8-10.44); Carbon Dioxide 25 mmol/L (22-29); Chloride 103 mmol/L (98-107); Estimated GFR-MDRD 66; Glucose 140 mg/dL (70-105); Magnesium 1.9 mg/dL (1.6-2.6); Phosphorus 2.9 mg/dL (2.3-4.7); Potassium 3.7 mmol/L (3.5-5.1); Sodium 136 mmol/L (136-145)
[2017-10-17] MEDS ORDERED: Fleet Enema 133 ML BOT FS PRN (07:59)
[2017-10-17] MEDS: Lisinopril/Hydrochlorothiazide 20 mg/12.5 mg Tablet PO SCH (08:11)
[2017-10-17] MEDS: Saccharomyces boulardii 250 MG CAP PO SCH (08:12)
[2017-10-17] MEDS: Potassium Chloride 10 MEQ TAB PO SCH ×2 (08:12→16:56)
[2017-10-17] MEDS: Gabapentin 300 MG CAP PO SCH ×3 (08:12→21:58)
[2017-10-17] MEDS: Amoxicillin/Potassium Clav 875 MG TAB PO SCH ×2 (08:12→21:58)
[2017-10-17] MEDS: Amlodipine 5 MG TAB PO SCH ×2 (08:12→21:58)
[2017-10-17] MEDS: Multivit, Therapeutic 1 TAB PO SCH (08:13)
[2017-10-17] MEDS: Senokot S 8.6-50 MG TAB PO SCH ×2 (08:15→21:59)
[2017-10-17] MEDS: Polyethylene Glycol 3350 17 GM Packet PO SCH (08:15)
[2017-10-17] MEDS: hydrALAZINE 20 MG/ML VIAL SLOW IVP PRN (11:46)
[2017-10-17] MEDS ORDERED: cloNIDine 0.1 MG TAB PO PRN (12:38)
[2017-10-17] MEDS ORDERED: Labetalol HCl 100 MG/20 ML VIAL SLOW IVP PRN (12:39)
[2017-10-17] MEDS ORDERED: Furosemide 40 MG TAB PO SCH (12:45)
[2017-10-17] MEDS ORDERED: cloNIDine 0.1 MG TAB PO SCH (12:45)
[2017-10-17] MEDS: Insulin Regular 300 UNITS/3 ML VIAL SC PRN ×2 (13:09→16:56)
--- NOTE | 2017-10-17 20:09 | PDOC.PN ---
- Subjective Encounter Start Date: 10/17/17 Encounter Start Time: 13:00 Patient seen and examined for med mgnt. No new complaints. Pain controlled. No overnight events - Objective MAR Reviewed: Yes Vital Signs & Weight: Vital Signs (12 hours) Temp Pulse Resp BP BP Pulse Ox 10/17/17 15:26 97.5 F L 102 H 18 164/85 H 93 L 10/17/17 12:53 184/84 H 10/17/17 11:46 103 H 189/100 H 10/17/17 11:02 97.9 F 103 H 22 H 205/111 H 98 10/17/17 08:12 102 H 173/75 H 10/17/17 08:11 102 H 173/75 H Weight Weight 228 lb I&O: 10/16/17 10/17/17 10/18/17 06:59 06:59 06:59 Intake Total 2275 1740 10 Balance 2275 1740 10 Result Diagrams: 10/15/17 05:17 10/17/17 04:23 Additional Labs: Accuchecks 10/17/17 10/17/17 10/17/17 15:41 11:04 05:27 POC Glucose 153 H 172 H 159 H 10/16/17 20:29 POC Glucose 287 H Phys Exam - Physical Examination Constitutional: NAD Respiratory: no wheezing, no rhonchi Cardiovascular: RRR, no rub Gastrointestinal: soft, non-tender, positive bowel sounds Musculoskeletal: no edema Neurological: moves all 4 limbs Dx/Plan - Plan DVT proph w/SCDs IMPRESSION: 1. HTN - uncontrolled 2. Electrolyte abn - hypokalemia, hypomagnesemia 3. Aspiration pneumonia - Not present on admission - on Augmentin - improving 4. DM2 - on sliding scale/Lantus 5. Abn LFTS /RADHA on CKD 2 - resolved/ Chronic Hep C / Chronic low back pain / Obesity BMI 33/Hypophosphatemia/Hyponatremia/Diarrhea - resolved PLAN: Lasix 40 mg PO x 1 with Clonidine Change Lis/HCTZ to 20/25 AM labs AM labs Cont Augmentin Cont Amlodipine Increase Lantus to 15 units HS Cont sliding scale Cont other PRN HTN meds Review of Systems - Medications/Allergies Allergies/Adverse Reactions: Allergies Allergy/AdvReac Type Severity Reaction Status Date / Time ibuprofen Allergy Intermediate ELYSSA Verified 10/02/17 13:02 DOSE, SHORTNESS OF BREATH, DIZZINESS Medications: Current Medications Hydrocodone Bitart/Acetaminophen ([place] 10/325) 1 tab PO Q4H PRN PRN Reason: PAIN (1-3) Last Admin: 10/14/17 06:47 Dose: 1 tab Hydrocodone Bitart/Acetaminophen ([place] 10/325) 2 tab PO Q4H PRN PRN Reason: PAIN (4-6) Last Admin: 10/17/17 03:40 Dose: 2 tab Al Hydroxide/Mg Hydroxide (Maalox) 30 ml PO Q4H PRN PRN Reason: Heartburn or Indigestion Last Admin: 10/09/17 22:08 Dose: 30 ml Amlodipine Besylate (Norvasc) 5 mg PO BID [facility] Last Admin: 10/17/17 08:12 Dose: 5 mg Amoxicillin/Clavulanate Potassium (Augmentin) 875 mg PO Q12HR [facility] Last Admin: 10/17/17 08:12 Dose: 875 mg Clonidine (Catapres) 0.1 mg PO Q4H PRN PRN Reason: Systolic BP > 180 Dextrose/Water (Dextrose 50%) 25 gm SLOW IVP PRN PRN PRN Reason: Hypoglycemia Diphenhydramine HCl (Benadryl) 25 mg PO Q6H PRN PRN Reason: Itching Diphenhydramine HCl (Benadryl) 25 mg IVP Q6H PRN PRN Reason: Itching Gabapentin (Neurontin) 600 mg PO TID [facility] Last Admin: 10/17/17 15:31 Dose: 600 mg Glucagon (Glucagon) 1 mg IM PRN PRN PRN Reason: Hypoglycemia Lisinopril/HCTZ (Prinizide 20-25) 1 tab PO DAILY [facility] Hydralazine HCl (Apresoline) 10 mg SLOW IVP Q4H PRN PRN Reason: SBP Greater Than 180 Last Admin: 10/17/17 11:46 Dose: 10 mg Dextrose/Water (D5w) 1,000 mls @ 0 mls/hr IV .Q0M PRN; As Directed PRN Reason: Hypoglycemia Insulin Glargine 15 units/ (Miscellaneous Medication) 0.15 mls @ 0 mls/hr SC [facility] Last Admin: 10/16/17 20:54 Dose: 0.15 mls Insulin Human Regular (Humulin R) 0 units SC .BEDTIME SLIDING SC PRN PRN Reason: Bedtime Correctional Scale Last Admin: 10/10/17 21:42 Dose: 4 unit Insulin Human Regular (Humulin R) 0 units SC .MODERATE SLIDING SC PRN PRN Reason: Moderate Correctional Scale Last Admin: 10/17/17 16:56 Dose: 2 units Labetalol HCl (Normodyne) 10 mg SLOW IVP Q4H PRN PRN Reason: Systolic BP > 180 Magnesium Hydroxide (Milk Of Magnesium) 30 ml PO Q12H PRN PRN Reason: Constipation Miscellaneous Medication (Pharmacy To Dose) 1 each IVPB ASDIR [facility] Morphine Sulfate (Morphine) 2 mg SLOW IVP Q1H PRN PRN Reason: Moderate Breakthrough Pain Morphine Sulfate (Morphine) 4 mg SLOW IVP Q1H PRN PRN Reason: Severe Breakthrough Pain Multivitamins (Theragran) 1 tab PO DAILY [facility] Last Admin: 10/17/17 08:13 Dose: 1 tab Ondansetron HCl (Zofran) 4 mg IVP Q8H PRN PRN Reason: Nausea/Vomiting Pantoprazole Sodium (Protonix) 40 mg PO DAILY [facility] Last Admin: 10/17/17 08:12 Dose: 40 mg Polyethylene Glycol (Miralax) 17 gm PO DAILY [facility] Last Admin: 10/17/17 08:15 Dose: 17 gm Potassium [facility] ([facility]) [facility] Last Admin: 10/17/17 16:56 Dose: 10 meq Promethazine HCl (Phenergan) 12.5 mg IM Q4H PRN PRN Reason: Nausea/Vomiting Last Admin: 10/09/17 20:29 Dose: 12.5 mg Promethazine HCl (Phenergan) 12.5 mg PO Q4H PRN PRN Reason: Nausea/Vomiting Promethazine HCl (Phenergan Suppository) 12.5 mg [place] Q4H PRN PRN Reason: Nausea/Vomiting Saccharomyces Boulardii (Florastor) 250 mg PO DAILY [facility] Last Admin: 10/17/17 08:12 Dose: 250 mg Senna/Docusate Sodium (Senokot S) 1 tab PO BID [facility] Last Admin: 10/17/17 08:15 Dose: 1 tab Sodium Biphosphate/Sodium Phosphate (Fleet Enema) 133 ml FS ONE PRN PRN Reason: CONSTIPATION Stop: 10/17/17 21:00 Last Admin: 10/17/17 10:15 Dose: 133 ml Sodium Chloride (Flush - Normal Saline) 10 ml IVF Q12HR [facility] Last Admin: 10/17/17 08:11 Dose: 10 ml Sodium Chloride (Flush - Normal Saline) 10 ml IVF PRN PRN PRN Reason: Saline Flush Tamsulosin HCl (Flomax) 0.4 mg PO 0600 [facility] Last Admin: 10/17/17 05:09 Dose: 0.4 mg Tizanidine HCl (Zanaflex) 4 mg PO Q6H PRN PRN Reason: MUSCLE SPASM Tizanidine HCl (Zanaflex) 4 mg PO HS [facility] Last Admin: 10/16/17 21:54 Dose: 4 mg Tramadol HCl (Ultram) 50 mg PO Q6H PRN PRN Reason: PAIN (1-3) Last Admin: 10/10/17 18:05 Dose: 50 mg Tramadol HCl (Ultram) 100 mg PO Q6H PRN PRN Reason: PAIN (4-6)
[2017-10-17] MEDS: tiZANidine HCl 4 MG TAB PO SCH (21:59)
[2017-10-17] MEDS: Insulin Glargine 15 UNITS in Pre-Filled Syringe 1 EACH SC SCH (21:59)
[2017-10-18 04:32] LABS: Anion Gap 11 mmol/L (10-20); BUN (Urea Nitrogen) 10 mg/dL (8.4-25.7); Calc. Creatinine Clearance 124 mL/min (70-130); Calcium 8.2 mg/dL (7.8-10.44); Carbon Dioxide 26 mmol/L (22-29); Chloride 101 mmol/L (98-107); Estimated GFR-MDRD 83; Glucose 166 mg/dL (70-105); Magnesium 1.4 mg/dL (1.6-2.6); Potassium 4.1 mmol/L (3.5-5.1); Sodium 134 mmol/L (136-145)
[2017-10-18] MEDS: Tamsulosin HCl 0.4 MG CAP PO SCH (05:54)
[2017-10-18] MEDS ORDERED: Lisinopril/Hydrochlorothiazide 20/25 mg Tablet PO SCH (09:00)
[2017-10-18] MEDS: Senokot S 8.6-50 MG TAB PO SCH (09:03)
[2017-10-18] MEDS: Polyethylene Glycol 3350 17 GM Packet PO SCH (09:03)
[2017-10-18] MEDS: Amoxicillin/Potassium Clav 875 MG TAB PO SCH (09:03)
[2017-10-18] MEDS: Amlodipine 5 MG TAB PO SCH (09:03)
[2017-10-18] MEDS: Potassium Chloride 10 MEQ TAB PO SCH (09:03)
[2017-10-18] MEDS: Gabapentin 300 MG CAP PO SCH ×2 (09:03→14:24)
[2017-10-18] MEDS: Saccharomyces boulardii 250 MG CAP PO SCH (09:03)
[2017-10-18] MEDS: Multivit, Therapeutic 1 TAB PO SCH (09:03)
[2017-10-18] MEDS: HYDROcodone/Acetaminophen 10/325 mg Tablet PO PRN ×2 (09:04→14:24)
[2017-10-18 12:28] VITALS: BP 177/93; TEMP 98.9
--- NOTE | 2017-10-18 14:08 | PDOC.PN ---
- Subjective Encounter Start Date: 10/18/17 Encounter Start Time: 14:07 Subjective: pt made aware of changes in BP meds & he got upset & angry -: he reported that he would not take any new meds except his home meds -: denies any new complaints otherwise - Objective MAR Reviewed: Yes Vital Signs & Weight: Vital Signs (12 hours) Temp Pulse Resp BP Pulse Ox 10/18/17 11:05 98.9 F 93 14 177/93 H 92 L 10/18/17 09:03 93 10/18/17 08:00 98.1 F 93 16 10/18/17 07:22 97.9 F 93 16 180/95 H 95 10/18/17 04:00 97.6 F 93 14 167/76 H 92 L Weight Weight 228 lb I&O: 10/17/17 10/18/17 10/19/17 06:59 06:59 06:59 Intake Total 1740 730 Balance 1740 730 Result Diagrams: 10/15/17 05:17 10/18/17 03:42 Additional Labs: Accuchecks 10/18/17 10/18/17 10/17/17 11:03 05:10 21:21 POC Glucose 201 H 153 H 196 H 10/17/17 15:41 POC Glucose 153 H Microbiology 10/15/17 18:15 Stool C. difficile [facility]DH Antigen & Toxins - Final 10/11/17 07:24 Venous blood - Right Arm Blood Culture - Final NO GROWTH IN 5 DAYS 10/11/17 07:21 Venous blood - Left Arm Blood Culture - Final NO GROWTH IN 5 DAYS Laboratory Tests 10/10/17 10/12/17 10/13/17 21:41 04:55 05:05 Magnesium 1.1 L 1.6 1.6 10/16/17 10/17/17 10/18/17 04:41 04:23 03:42 Magnesium 1.4 L 1.9 1.4 L labs reviewed Phys Exam - Physical Examination Constitutional: NAD HEENT: PERRLA, moist MMs, sclera anicteric, oral pharynx no lesions Neck: no nodes, no JVD, supple, full ROM Respiratory: no wheezing, no rales, no rhonchi, clear to auscultation bilateral Cardiovascular: RRR, no significant murmur Gastrointestinal: soft, non-tender, no distention, positive bowel sounds Musculoskeletal: no edema, pulses present Neurological: non-focal, normal sensation, moves all 4 limbs Psychiatric: normal affect, A&O x 3 Skin: no rash Dx/Plan (1) Aspiration pneumonia Code(s): J69.0 - PNEUMONITIS DUE TO INHALATION OF FOOD AND VOMIT Status: Acute (2) Hypokalemia Code(s): E87.6 - HYPOKALEMIA Status: Resolved (3) Hypomagnesemia Code(s): E83.42 - HYPOMAGNESEMIA Status: Acute (4) Chronic hepatitis Code(s): K73.9 - CHRONIC HEPATITIS, UNSPECIFIED Status: Chronic (5) Cirrhosis Code(s): K74.60 - UNSPECIFIED CIRRHOSIS OF LIVER Status: Chronic (6) Diabetes mellitus type 2 in nonobese Code(s): E11.9 - TYPE 2 DIABETES MELLITUS WITHOUT COMPLICATIONS Status: Chronic (7) Hypertension Code(s): I10 - ESSENTIAL (PRIMARY) HYPERTENSION Status: Chronic - Plan replace Mag & then OK to DC -: new prescriptions provided & pt instructed about the high ,uncont BP -: Ok to DC from IM stand point -: scrpit providede for antibiotic. -: f/u w PCP in 7-10 days * . Review of Systems - Review of Systems Constitutional: negative: fever, chills, sweats, weakness, malaise, other Respiratory: negative: Cough, Dry, Shortness of Breath, Hemoptysis, SOB with Excertion, Pleuritic Pain, Sputum, Wheezing Cardiovascular: negative: chest pain, palpitations, orthopnea, paroxysmal nocturnal dyspnea, edema, light headedness, other Gastrointestinal: negative: Nausea, Vomiting, Abdominal Pain, Diarrhea, Constipation, Melena, Hematochezia, Other Genitourinary: negative: Dysuria, Frequency, Incontinence, Hematuria, Retention , Other Musculoskeletal: negative: Neck Pain, Shoulder Pain, Arm Pain, Back Pain, Hand Pain, Leg Pain, Foot Pain, Other Skin: negative: Rash, Lesions, Shahriar, Bruising, Other Neurological: negative: Weakness, Numbness, Incoordination, Change in Speech, Confusion, Seizures, Other - Medications/Allergies Allergies/Adverse Reactions: Allergies Allergy/AdvReac Type Severity Reaction Status Date / Time ibuprofen Allergy Intermediate ELYSSA Verified 10/02/17 13:02 DOSE, SHORTNESS OF BREATH, DIZZINESS Medications: Current Medications Hydrocodone Bitart/Acetaminophen ([place] 10/325) 1 tab PO Q4H PRN PRN Reason: PAIN (1-3) Last Admin: 10/14/17 06:47 Dose: 1 tab Hydrocodone Bitart/Acetaminophen ([place] 10/325) 2 tab PO Q4H PRN PRN Reason: PAIN (4-6) Last Admin: 10/18/17 09:04 Dose: 2 tab Al Hydroxide/Mg Hydroxide (Maalox) 30 ml PO Q4H PRN PRN Reason: Heartburn or Indigestion Last Admin: 10/09/17 22:08 Dose: 30 ml Amitriptyline HCl (Elavil) 25 mg PO HS [facility] Amlodipine Besylate (Norvasc) 5 mg PO BID [facility] Last Admin: 10/18/17 09:03 Dose: 5 mg Amoxicillin/Clavulanate Potassium (Augmentin) 875 mg PO Q12HR [facility] Last Admin: 10/18/17 09:03 Dose: 875 mg Atorvastatin Calcium (Lipitor) 40 mg PO DAILY [facility] Clonidine (Catapres) 0.1 mg PO Q4H PRN PRN Reason: Systolic BP > 180 Dextrose/Water (Dextrose 50%) 25 gm SLOW IVP PRN PRN PRN Reason: Hypoglycemia Diphenhydramine HCl (Benadryl) 25 mg PO Q6H PRN PRN Reason: Itching Diphenhydramine HCl (Benadryl) 25 mg IVP Q6H PRN PRN Reason: Itching Gabapentin (Neurontin) 600 mg PO TID [facility] Last Admin: 10/18/17 09:03 Dose: 600 mg Glucagon (Glucagon) 1 mg IM PRN PRN PRN Reason: Hypoglycemia Lisinopril/HCTZ (Prinizide 20-25) 1 tab PO DAILY [facility] Last Admin: 10/18/17 09:03 Dose: 1 tab Hydralazine HCl (Apresoline) 10 mg SLOW IVP Q4H PRN PRN Reason: SBP Greater Than 180 Last Admin: 10/17/17 11:46 Dose: 10 mg Dextrose/Water (D5w) 1,000 mls @ 0 mls/hr IV .Q0M PRN; As Directed PRN Reason: Hypoglycemia Insulin Glargine 15 units/ (Miscellaneous Medication) 0.15 mls @ 0 mls/hr SC [facility] Last Admin: 10/17/17 21:59 Dose: 0.15 mls Insulin Human Regular (Humulin R) 0 units SC .BEDTIME SLIDING SC PRN PRN Reason: Bedtime Correctional Scale Last Admin: 10/10/17 21:42 Dose: 4 unit Insulin Human Regular (Humulin R) 0 units SC .MODERATE SLIDING SC PRN PRN Reason: Moderate Correctional Scale Last Admin: 10/17/17 16:56 Dose: 2 units Labetalol HCl (Normodyne) 10 mg SLOW IVP Q4H PRN PRN Reason: Systolic BP > 180 Magnesium Hydroxide (Milk Of Magnesium) 30 ml PO Q12H PRN PRN Reason: Constipation Miscellaneous Medication (Pharmacy To Dose) 1 each IVPB ASDIR [facility] Morphine Sulfate (Morphine) 2 mg SLOW IVP Q1H PRN PRN Reason: Moderate Breakthrough Pain Morphine Sulfate (Morphine) 4 mg SLOW IVP Q1H PRN PRN Reason: Severe Breakthrough Pain Multivitamins (Theragran) 1 tab PO DAILY [facility] Last Admin: 10/18/17 09:03 Dose: 1 tab Ondansetron HCl (Zofran) 4 mg IVP Q8H PRN PRN Reason: Nausea/Vomiting Pantoprazole Sodium (Protonix) 40 mg PO DAILY [facility] Last Admin: 10/18/17 09:03 Dose: 40 mg Polyethylene Glycol (Miralax) 17 gm PO DAILY [facility] Last Admin: 10/18/17 09:03 Dose: 17 gm Potassium [facility]lor[facility] ([facility]Con [facility]) [facility] Last Admin: 10/18/17 09:03 Dose: 10 meq Promethazine HCl (Phenergan) 12.5 mg IM Q4H PRN PRN Reason: Nausea/Vomiting Last Admin: 10/09/17 20:29 Dose: 12.5 mg Promethazine HCl (Phenergan) 12.5 mg PO Q4H PRN PRN Reason: Nausea/Vomiting Promethazine HCl (Phenergan Suppository) 12.5 mg [place] Q4H PRN PRN Reason: Nausea/Vomiting Saccharomyces Boulardii (Florastor) 250 mg PO DAILY [facility] Last Admin: 10/18/17 09:03 Dose: 250 mg Senna/Docusate Sodium (Senokot S) 1 tab PO BID [facility] Last Admin: 10/18/17 09:03 Dose: 1 tab Sodium Chloride (Flush - Normal Saline) 10 ml IVF Q12HR [facility] Last Admin: 10/18/17 09:06 Dose: 10 ml Sodium Chloride (Flush - Normal Saline) 10 ml IVF PRN PRN PRN Reason: Saline Flush Tamsulosin HCl (Flomax) 0.4 mg PO 0600 [facility] Last Admin: 10/18/17 05:54 Dose: 0.4 mg Tizanidine HCl (Zanaflex) 4 mg PO Q6H PRN PRN Reason: MUSCLE SPASM Tizanidine HCl (Zanaflex) 4 mg PO HS [facility] Last Admin: 10/17/17 21:59 Dose: 4 mg Tramadol HCl (Ultram) 50 mg PO Q6H PRN PRN Reason: PAIN (1-3) Last Admin: 10/10/17 18:05 Dose: 50 mg Tramadol HCl (Ultram) 100 mg PO Q6H PRN PRN Reason: PAIN (4-6)
[2017-10-18] MEDS ORDERED: Amitriptyline HCl 25 MG TAB PO SCH (21:00)
[2017-10-19] MEDS ORDERED: Atorvastatin Calcium 40 MG TAB PO SCH (09:00)
== END 2017-10-18 15:14 | disposition home or self-care (01) | DRG 453 ==
LOC: SDC 05:35 → OBSVTOIN 18:37 → 3SE 18:37 → SURG A 10-11 12:27
PROVIDERS: ADMIT Neurological Surgery; ATTEND Neurological Surgery
PROC: 0SG3071 Fusion of Lumbosacral Joint with Autologous Tissue Substitute, Posterior Approach, Posterior Column, Open Approach (ICD-10-PCS; principal; 2017-10-09)
PROC: 01NB0ZZ Release Lumbar Nerve, Open Approach (ICD-10-PCS; 2017-10-09)
PROC: 0RG20A0 Fusion of 2 or more Cervical Vertebral Joints with Interbody Fusion Device, Anterior Approach, Anterior Column, Open Approach (ICD-10-PCS; 2017-10-16)
PROC: 01N10ZZ Release Cervical Nerve, Open Approach (ICD-10-PCS; 2017-10-16)
PROC: 0RT30ZZ Resection of Cervical Vertebral Disc, Open Approach (ICD-10-PCS; 2017-10-16)
PROC: 0PB30ZZ Excision of Cervical Vertebra, Open Approach (ICD-10-PCS; 2017-10-16)
DX: M48.07 Spinal stenosis, lumbosacral region (principal); J69.0 Pneumonitis due to inhalation of food and vomit; N17.9 Acute kidney failure, unspecified; E87.1 Hypo-osmolality and hyponatremia; M43.16 Spondylolisthesis, lumbar region; M48.061 Spinal stenosis, lumbar region without neurogenic claudication; M48.02 Spinal stenosis, cervical region; I12.9 Hypertensive chronic kidney disease with stage 1 through stage 4 chronic kidney disease, or unspecified chronic kidney disease; E11.22 Type 2 diabetes mellitus with diabetic chronic kidney disease; N18.2 Chronic kidney disease, stage 2 (mild); E87.6 Hypokalemia; E83.42 Hypomagnesemia; E83.39 Other disorders of phosphorus metabolism; E87.5 Hyperkalemia; B18.2 Chronic viral hepatitis C; E66.9 Obesity, unspecified; R29.6 Repeated falls; R79.89 Other specified abnormal findings of blood chemistry; R19.7 Diarrhea, unspecified; M25.78 Osteophyte, vertebrae; Z68.33 Body mass index [BMI] 33.0-33.9, adult; Z79.899 Other long term (current) drug therapy
CPT/HCPCS: 36415; 36416; 51798; 71045; 72141; 76001; 80048; 80053; 83690; 83735; 83930; 83935; 84100; 84300; 84443; 85025; 87040; 87324; 87449; 93970; 96374; A4216; C1713; C1768; C1776; G8978-GP-CK; G8979-GP-CI; G8987-GO-CJ; G8987-GO-CK; G8988-GO-CI; J0131; J0360; J1100; J1170; J1815; J1885; J1940; J2001; J2270; J2405; J2543; J2550; J2704; J3010; J3370; J3475; J3490; J7050

== ENCOUNTER 2017-10-31 09:03 | Outpatient (CLI) | payer MEDICARE ==
--- NOTE | 2017-10-31 10:05 | RAD ---
CERVICAL SPINE THREE VIEWS: HISTORY: Neck pain (M54.2). TECHNIQUE: AP, lateral, and open mouth odontoid views of the cervical spine are obtained. FINDINGS: There is anterior displacement of the left C4 stabilized screw. There is an ACDF with anterior plate involving the C4, C5, and C6 levels. The C5 and C6 screws are in good position. IMPRESSION: Anterior migration of the left C4 level screw. POS: [facility]
--- NOTE | 2017-10-31 10:18 | RAD ---
2 VIEWS LUMBAR SPINE: Date: 10/31/17 HISTORY: Back pain. Leg weakness. Previous back surgery. COMPARISON: 08/24/17. FINDINGS: Upright AP and lateral views of lumbar spine demonstrate five lumbar-type vertebral bodies. There is 1.8 cm anterolisthesis of L5 upon S1, not significantly changed when compared to the previous examina tion. Previously, in the neutral position, there was 1.7 cm anterolisthesis of L5 upon S1. Interval p lacement of bilateral transpedicular screws at L5 and S1. No perihardware lucency. IMPRESSION: Interval lumbar fusion as above. Persistent Grade II anterolisthesis of L5 upon S1. POS: [facility]
== END 2017-10-31 09:04 | disposition home or self-care (01) ==
LOC: TBSIIMAG 09:03
PROVIDERS: ATTEND Neurological Surgery
DX: M54.2 Cervicalgia (principal); M54.5 Low back pain; M43.17 Spondylolisthesis, lumbosacral region; Z98.1 Arthrodesis status
CPT/HCPCS: 72040; 72100

== ENCOUNTER 2020-06-12 21:40 | Inpatient (IN) | payer MEDICARE ==
[2020-06-12] MEDS ORDERED: EPINEPHrine 1 MG/10 ML Abboject SYRINGE ONE (22:05)
[2020-06-12] MEDS ORDERED: Amiodarone 150 MG/3 ML VIAL ONE (22:05)
[2020-06-12 22:06] LABS: #Basophils 0.1 thou/uL (0.0-0.2); #Eosinphils 0.3 thou/uL (0.0-0.7); #Monocytes 0.9 thou/uL (0.11-0.59); #Neutrophils 3.8 thou/uL (1.40-6.50); %Eosinophils 3.2 % (0.0-10.0); %Lymphocytes 37.4 % (21.0-51.0); %Neutrophils 47.4 % (42.0-75.0); Hemoglobin 10.4 g/dL (14.0-18.0); Mean Corpuscular HGB CONC 30.6 g/dL (32.0-36.0); Mean Corpuscular Hemoglobin 29.7 pg (27.0-31.0); Mean Platelet Volume 8.9 fL (7.4-10.4); Platelet Count 111 thou/uL (130-400); RBC Distribution Width 13.4 % (11.5-14.5)
[2020-06-12 22:11] LABS: INR-International Normal Ratio 1.5; Prothrombin Time 18.6 sec (12.0-14.7)
[2020-06-12 22:15] LABS: Bacteria/HPF None Seen HPF (None Seen); Bilirubin Negative (Negative); Blood, Urine 1+ (Negative); Clarity Clear (Clear); Glucose, Urine (Dipstick) Normal (Negative); Ketone, Urine Negative (Negative); Leukocyte Negative Leu/uL (Negative); Nitrite Negative (Negative); Protein, Urine (Dipstick) 300 mg/dL (Neg-Trace); Renal Epithelial 0-3 HPF (None Seen); Specific Gravity, Urine 1.013 (1.002-1.036); Squamous Epithelial None Seen HPF (0-3); Urobilinogen Normal mg/dL (Less than 2); pH, Urine 6.5 (5.0-9.0)
[2020-06-12] MEDS ORDERED: Norepinephrine 8 MG/0.9% NS 250 ML ONE (22:17)
[2020-06-12 22:18] LABS: Magnesium 2.3 mg/dL (1.6-2.6)
[2020-06-12 22:19] LABS: Sperm/HPF 3+ HPF (None Seen)
[2020-06-12 22:19] LABS: ALT (SGPT) 39 U/L (8-55); AST (SGOT) 51 U/L (5-34); Acetaminophen Less than 6.0 mcg/mL (10.0-30.0); Albumin 3.4 g/dL (3.4-4.8); Alcohol 24 mg/dL (Less than 10); Alkaline Phosphatase 139 U/L (40-110); Anion Gap 27 mmol/L (10-20); BUN (Urea Nitrogen) 61 mg/dL (8.4-25.7); Bilirubin, Total 0.7 mg/dL (0.2-1.2); Calc. Creatinine Clearance 0 mL/min (70-130); Calcium 7.8 mg/dL (7.8-10.44); Carbon Dioxide 15 mmol/L (23-31); Chloride 102 mmol/L (98-107); Globulin 2.8 g/dL (2.4-3.5); Glucose 338 mg/dL (80-115); Lipase 31 U/L (8-78); Protein, Total 6.2 g/dL (5.8-8.1); Salicylate Less than 8.0 mg/dL (15.0-30.0); Sodium 138 mmol/L (136-145)
[2020-06-12 22:20] LABS: D-Dimer Test 7.27 *mcg/mL (0.27-0.43)
[2020-06-12 22:21] LABS: Amphetamine Not Detected (NotDetected); Barbiturates Screen Not Detected (NotDetected); Benzodiazepine Screen Not Detected (NotDetected); Cocaine Metabolite Screen Not Detected (NotDetected); Medtox Control Line Valid? VALID (VALID); Medtox Reader # READER 1; Methadone Not Detected (NotDetected); Methamphetamine Not Detected (NotDetected); Opiate Screen Detected (NotDetected); Oxycodone Screen Not Detected (NotDetected); Phencyclidine (PCP) Not Detected (NotDetected); THC/Cannabinoid Screen Not Detected (NotDetected); Tricyclic Screen Not Detected (NotDetected)
[2020-06-12 22:58] LABS: Actual Bicarbonate (HCO3a) 14.9 mEq/L (22-28); Analyzer IN Cardio ER; Base Excess (BEa) -15.3 mEq/L (-2.0 to +3.0); CO2 Tension 54.5 mmHg (35.0-45.0); Carboxyhemoglobin (COHb) 0.5 gm% (0.0-3.0); Hemoglobin (Hb) 11.5 g/dL (14.0-18.0); O2 Tension (PaO2), arterial 88.8 mmHg (> 80.0); Potassium - ABG Lab 5.11 mmol/L (3.70-5.30)
[2020-06-12 22:59] LABS: SARS-CoV-2 NAA Rapid Test Not Detected (NotDetected)
[2020-06-12 22:59] LABS: pH, Arterial 7.06 (7.35-7.45)
[2020-06-12 23:00] LABS: ALV-art Gradient 556.075 mmHg (0-20); Puncture Site LRA
[2020-06-12] MEDS ORDERED: Amiodarone 150 MG, Admixture Fee 1 EACH in Dextrose 5% in Water 100 ML IVPB SCH (23:15)
[2020-06-12] MEDS ORDERED: Fentanyl CADD 100 ML IV SCH (23:15)
[2020-06-12] MEDS ORDERED: Lorazepam 2 MG/ML VIAL ONE (23:35)
[2020-06-12] MEDS ORDERED: Propofol 1,000 MG/100 ML VIAL IV ONE (23:43)
[2020-06-13] MEDS ORDERED: Ondansetron PF 4 MG/2 ML Vial IVP PRN (00:08)
[2020-06-13] MEDS ORDERED: Ondansetron ODT 4 MG TAB PO PRN (00:08)
[2020-06-13] MEDS ORDERED: Ventilator Sedation Protocol 1 EACH FS SCH (00:15)
[2020-06-13] MEDS ORDERED: Dextrose 50% Abboject 50 ML SYRINGE SLOW IVP PRN (00:20)
[2020-06-13] MEDS ORDERED: Dextrose 5% in Water 1,000 ML IV PRN (00:20)
[2020-06-13] MEDS ORDERED: DISCONTINUE PREVIOUS NARCOTIC PAIN MEDICATIONS AND BENZODIAZEPINES FS SCH (00:30)
[2020-06-13] MEDS ORDERED: Propofol BOLUS 1,000 MG/100 ML VIAL IV PRN (00:30)
[2020-06-13] MEDS ORDERED: Morphine 2 MG/ML VIAL SLOW IVP PRN (00:30)
[2020-06-13] MEDS ORDERED: Fentanyl BOLUS 250 ML IVPB PRN (00:30)
[2020-06-13] MEDS ORDERED: Propofol 1,000 MG/100 ML VIAL IV PRN (00:30)
[2020-06-13 01:16] LABS: Lactic Acid 5.1 mmol/L (0.5-2.2)
[2020-06-13 01:29] VITALS: BMI 31.3
[2020-06-13] MEDS ORDERED: Enoxaparin Sodium 100 MG/ML SYRINGE SC SCH ×2 (01:45→21:00)
[2020-06-13] MEDS: Piperacillin/Tazobactam 4.5 GM in Sodium Chloride 0.9% 100 ML IVPB SCH ×3 (02:24→17:04)
[2020-06-13 02:33] LABS: Anion Gap 16 mmol/L (10-20); BUN (Urea Nitrogen) 68 mg/dL (8.4-25.7); Calc. Creatinine Clearance 38 mL/min (70-130); Calcium 7.7 mg/dL (7.8-10.44); Carbon Dioxide 21 mmol/L (23-31); Chloride 103 mmol/L (98-107); Glucose 192 mg/dL (80-115); Potassium 5.6 mmol/L (3.5-5.1); Sodium 134 mmol/L (136-145)
[2020-06-13 02:38] LABS: Actual Bicarbonate (HCO3a) 21.5 mEq/L (22-28); Base Excess (BEa) -4.8 mEq/L (-2.0 to +3.0); CO2 Tension 44.4 mmHg (35.0-45.0); Calcium, Ionized (arterial) 1.07 mmol/L (1.12-1.30); Carboxyhemoglobin (COHb) 0.9 gm% (0.0-3.0); Hemoglobin (Hb) 10.9 g/dL (14.0-18.0)
[2020-06-13 02:40] LABS: O2 Tension (PaO2), arterial 48.4 mmHg (> 80.0); Puncture Site RBA
[2020-06-13] MEDS: Lactated Ringer's 1,000 ML IV SCH ×2 (03:00→16:11)
[2020-06-13] MEDS: Amiodarone 450 MG, Admixture Fee 1 EACH in Dextrose 5% in Water 250 ML IVPB SCH ×2 (03:56→16:22)
[2020-06-13 05:51] LABS: Anion Gap 13 mmol/L (10-20); BUN (Urea Nitrogen) 61 mg/dL (8.4-25.7); Calc. Creatinine Clearance 37 mL/min (70-130); Carbon Dioxide 25 mmol/L (23-31); Chloride 102 mmol/L (98-107); Glucose 175 mg/dL (80-115); Potassium 5.1 mmol/L (3.5-5.1); Sodium 135 mmol/L (136-145)
[2020-06-13] MEDS: HumaLOG 300 UNITS/3 ML VIAL SC PRN ×3 (05:56→21:08)
[2020-06-13 05:57] LABS: Hemoglobin 10.3 g/dL (14.0-18.0); Lymphocytes 3 % (21-51); MDiff Complete? YES; Mean Corpuscular HGB CONC 32.2 g/dL (32.0-36.0); Mean Corpuscular Hemoglobin 29.9 pg (27.0-31.0); Mean Platelet Volume 7.7 fL (7.4-10.4); Monocytes 2 % (0-10); Neutrophil 95 % (42-75); Platelet Count 127 thou/uL (130-400); Platelet Morphology Comment Appears Adequate; RBC Distribution Width 13.4 % (11.5-14.5); Red Blood Cell (RBC) Count 3.44 mill/uL (4.70-6.10); White Blood Cell (WBC) Count 5.8 thou/uL (4.8-10.8)
[2020-06-13 06:01] LABS: Troponin I 2.618 ng/mL (< 0.028)
[2020-06-13] MEDS ORDERED: Enoxaparin Sodium 30 MG/0.3 ML SYRINGE SC SCH (09:00)
[2020-06-13] MEDS ORDERED: Sodium Chloride 0.9% (PF) 10 ML VIAL FS PRN (10:30)
[2020-06-13] MEDS ORDERED: Scopolamine 1.5 mg/72 hour Patch TD SCH (12:00)
[2020-06-13] MEDS: Lorazepam 2 MG/ML VIAL SLOW IVP PRN (16:11)
[2020-06-13] MEDS ORDERED: hydrALAZINE 20 MG/ML VIAL SLOW IVP SCH (20:30)
[2020-06-13] MEDS ORDERED: FLU VACC QS2020-21(6MOS UP)/PF 60 MCG/0.5 ML SYRINGE IM ONE (21:00)
[2020-06-14] MEDS: Lorazepam 2 MG/ML VIAL SLOW IVP PRN ×2 (00:21→12:01)
[2020-06-14] MEDS: Piperacillin/Tazobactam 4.5 GM in Sodium Chloride 0.9% 100 ML IVPB SCH ×2 (01:07→09:41)
[2020-06-14 05:36] LABS: #Lymphocytes 0.3 thou/uL (1.20-3.40); #Monocytes 0.5 thou/uL (0.11-0.59); #Neutrophils 8.9 thou/uL (1.40-6.50); %Basophils 0.1 % (0.0-1.0); %Eosinophils 0.1 % (0.0-10.0); %Lymphocytes 3.3 % (21.0-51.0); %Monocytes 4.9 % (0.0-10.0); %Neutrophils 91.6 % (42.0-75.0); Hemoglobin 9.5 g/dL (14.0-18.0); Mean Corpuscular HGB CONC 32.3 g/dL (32.0-36.0); Mean Corpuscular Hemoglobin 30.3 pg (27.0-31.0); Mean Corpuscular Volume 93.7 fL (78.0-98.0); Mean Platelet Volume 8.6 fL (7.4-10.4); Platelet Count 103 thou/uL (130-400); RBC Distribution Width 13.5 % (11.5-14.5); Red Blood Cell (RBC) Count 3.14 mill/uL (4.70-6.10); White Blood Cell (WBC) Count 9.7 thou/uL (4.8-10.8)
[2020-06-14 05:48] LABS: Anion Gap 16 mmol/L (10-20); BUN (Urea Nitrogen) 83 mg/dL (8.4-25.7); Calc. Creatinine Clearance 31 mL/min (70-130); Calcium 8.3 mg/dL (7.8-10.44); Carbon Dioxide 23 mmol/L (23-31); Chloride 102 mmol/L (98-107); Glucose 174 mg/dL (80-115); Potassium 4.3 mmol/L (3.5-5.1); Sodium 137 mmol/L (136-145)
[2020-06-14] MEDS: HumaLOG 300 UNITS/3 ML VIAL SC PRN ×2 (05:54→10:07)
[2020-06-14] MEDS: Lactated Ringer's 1,000 ML IV SCH (05:54)
[2020-06-14 07:40] LABS: Actual Bicarbonate (HCO3a) 21.1 mEq/L (22-28); Base Excess (BEa) -2.5 mEq/L (-2.0 to +3.0); CO2 Tension 32.1 mmHg (35.0-45.0); Calcium, Ionized (arterial) 1.11 mmol/L (1.12-1.30); Carboxyhemoglobin (COHb) 0.7 gm% (0.0-3.0); O2 Tension (PaO2), arterial 110.9 mmHg (> 80.0); Potassium - ABG Lab 4.17 mmol/L (3.70-5.30); pH, Arterial 7.44 (7.35-7.45)
[2020-06-14 07:42] LABS: ALV-art Gradient 134.175 mmHg (0-20); Puncture Site RRA
[2020-06-14 08:15] VITALS: TEMP 97.6
[2020-06-14] MEDS: Amiodarone 450 MG, Admixture Fee 1 EACH in Dextrose 5% in Water 250 ML IVPB SCH (08:45)
[2020-06-14] MEDS ORDERED: hydrALAZINE 20 MG/ML VIAL SLOW IVP SCH (08:45)
[2020-06-14] MEDS ORDERED: Pantoprazole 40 MG VIAL IVP SCH (09:00)
[2020-06-14] MEDS ORDERED: Carvedilol 3.125 MG TAB PO SCH (09:45)
[2020-06-14 10:28] VITALS: BP 181/83
[2020-06-14] MEDS ORDERED: Carvedilol 6.25 MG TAB PO SCH (17:00)
== END 2020-06-14 12:28 | disposition expired ==
LOC: ERS 21:40 → CCU 22:54
PROVIDERS: ADMIT Student in an Organized Health Care Education/Training Program; ATTEND Internal Medicine
PROC: 5A12012 Performance of Cardiac Output, Single, Manual (ICD-10-PCS; principal; 2020-06-12)
PROC: 5A1945Z Respiratory Ventilation, 24-96 Consecutive Hours (ICD-10-PCS; 2020-06-12)
PROC: 3E033XZ Introduction of Vasopressor into Peripheral Vein, Percutaneous Approach (ICD-10-PCS; 2020-06-12)
DX: I13.0 Hypertensive heart and chronic kidney disease with heart failure and stage 1 through stage 4 chronic kidney disease, or unspecified chronic kidney disease (principal); J96.01 Acute respiratory failure with hypoxia; I21.A1 Myocardial infarction type 2; J96.02 Acute respiratory failure with hypercapnia; G93.1 Anoxic brain damage, not elsewhere classified; N17.9 Acute kidney failure, unspecified; I50.32 Chronic diastolic (congestive) heart failure; E87.2 Acidosis; Z66 Do not resuscitate; Z20.822 Contact with and (suspected) exposure to COVID-19; I42.9 Cardiomyopathy, unspecified; I46.2 Cardiac arrest due to underlying cardiac condition; N18.30 Chronic kidney disease, stage 3 unspecified; E11.22 Type 2 diabetes mellitus with diabetic chronic kidney disease; F41.9 Anxiety disorder, unspecified; F17.210 Nicotine dependence, cigarettes, uncomplicated; F12.10 Cannabis abuse, uncomplicated; E78.5 Hyperlipidemia, unspecified; G89.29 Other chronic pain; M54.9 Dorsalgia, unspecified; E87.5 Hyperkalemia; R79.89 Other specified abnormal findings of blood chemistry; D69.6 Thrombocytopenia, unspecified; E88.09 Other disorders of plasma-protein metabolism, not elsewhere classified; Z88.6 Allergy status to analgesic agent; Z79.82 Long term (current) use of aspirin; Z79.4 Long term (current) use of insulin; Z79.51 Long term (current) use of inhaled steroids; Z79.899 Other long term (current) drug therapy
CPT/HCPCS: 36415; 36416; 36556; 36600; 51702; 70450; 71045; 80048; 80053; 80306; 80307; 81003; 81015; 82550; 82553; 82805; 83605; 83690; 83735; 83880; 84484; 85025; 85379; 85610; 85730; 87040; 87324; 87449; 92950; 93005; 93306; 94002; 94003; 94760; 96365; 96366; 96368; 96375; 99292; C9113; J0171; J0282; J0360; J1650; J1815; J2060; J2270; J2543; J2704; J3010; J3490; J7070; U0002